=== PATIENT | male | born 2000 | race Caucasian/White ===

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

== ENCOUNTER 2020-01-29 17:42 | Emergency (ER) | payer MEDICAID, OTHER ==
--- NOTE | 2020-01-29 18:32 | EDM.PDOC ---
ED HPI GENERAL MEDICAL PROBLEM - General Chief Complaint: Respiratory Problem Stated Complaint: HARD TIME BREATHING Time Seen by Provider: 01/29/20 18:10 Source of Information: Reports: Patient, RN, RN Notes Reviewed History Limitations: Reports: No Limitations - History of Present Illness INITIAL COMMENTS - FREE TEXT/NARRATIVE: Presents to ER with complaint of waking up about 730 this morning feeling as though he was being choked, sore throat, and difficulty catching his breath. Patient states this resolved on its own, he did help his friend move today. Patient states he has been beginning to feel as though he is tight in the throat again, sore throat, states he has had a cough and some sinus congestion on and off. Admits to fever and chills. Denies any chest pains or shortness of breath, nausea, vomiting, diarrhea. Onset: Today, Sudden Bilateral Throat Pain Score (Numeric/FACES): 8 - Related Data Allergies Allergy/AdvReac Type Severity Reaction Status Date / Time amoxicillin Allergy Rash Verified 01/29/20 17:54 Home Meds: Home Meds . [No Known Home Meds] 12/04/19 [History] Past Medical History - Past Health History Medical/Surgical History: Denies Medical/Surgical History HEENT History: Reports: None Cardiovascular History: Reports: None Respiratory History: Reports: None Gastrointestinal History: Reports: None Genitourinary History: Reports: None Musculoskeletal History: Reports: Other (See Below) Other Musculoskeletal History: Lt wrist fx. Hip left problems Neurological History: Reports: None Psychiatric History: Reports: Anxiety, Depression, Other (See Below) Other Psychiatric History: issues with sleeping Endocrine/Metabolic History: Reports: None Hematologic History: Reports: None Immunologic History: Reports: None Oncologic (Cancer) History: Reports: None Dermatologic History: Reports: None - Infectious Disease History Infectious Disease History: Reports: Chicken Pox, Shingles - Past Surgical History Head Surgeries/Procedures: Reports: None Social & Family History - Family History Family Medical History: Noncontributory Respiratory: Reports: Asthma - Tobacco Use Smoking Status *Q: Never Smoker Second Hand Smoke Exposure: No - Caffeine Use Caffeine Use: Reports: Energy Drinks Caffeine Use Comment: occassional - Recreational Drug Use Recreational Drug Use: No ED ROS GENERAL - Review of Systems Review Of Systems: Comprehensive ROS is negative, except as noted in HPI. ED EXAM, GENERAL - Physical Exam Exam: See Below Exam Limited By: No Limitations General Appearance: Alert, WD/WN, No Apparent Distress, Anxious Eye Exam: Bilateral Eye: EOMI, Normal Inspection Ears: Normal External Exam, Normal Canal, Hearing Grossly Normal, Normal TMs Nose: Normal Inspection Throat/Mouth: Normal Lips, Normal Teeth, Normal Gums, Normal Voice, No Airway Compromise, Other (Oropharynx erythematous) Head: Atraumatic, Normocephalic Neck: Supple, Non-Tender, Full Range of Motion, Lymphadenopathy (L), Lymphadenopathy (R) Respiratory/Chest: No Respiratory Distress, Lungs Clear, Normal Breath Sounds, No Accessory Muscle Use, Chest Non-Tender Cardiovascular: Normal Peripheral Pulses, Regular Rate, Rhythm, No Edema, No Gallop, No JVD, No Murmur, No Rub GI/Abdominal: Normal Bowel Sounds, Soft, Non-Tender, No Organomegaly, No Distention, No Abnormal Bruit, No Mass, Pelvis Stable (Male) Exam: Deferred Rectal (Males) Exam: Deferred Back Exam: Normal Inspection, Full Range of Motion, NT Extremities: Normal Inspection, Normal Range of Motion, Non-Tender, Normal Capillary Refill, No Pedal Edema Neurological: Alert, Oriented, CN II-XII Intact, Normal Cognition, Normal Gait, Normal Reflexes, No Motor/Sensory Deficits Psychiatric: Normal Affect, Normal Mood, Anxious Skin Exam: Warm, Dry, Intact, Normal Color, No Rash Lymphatic: Adenopathy (Anterior Cervical +1-2 bilaterally) Course - Vital Signs Last Recorded V/S: Last Vital Signs Temp 98.6 F 01/29/20 17:55 Pulse 74 01/29/20 17:55 Resp 20 01/29/20 17:55 BP 144/82 H 01/29/20 17:55 Pulse Ox 99 01/29/20 17:55 - Orders/Labs/Meds Orders: Active Orders 24 hr Category Date Time Status CULTURE STREP A CONFIRMATION [] Stat Lab 01/29/20 18:10 Results STREP SCRN A RAPID W CULT CONF [] Stat Lab 01/29/20 18:10 Results Labs: Rapid Strep: NEGATIVE Meds: Medications Discontinued Medications Generic Name Dose Route Start Last Admin Trade Name Freq PRN Reason Stop Dose Admin Azithromycin 500 mg 01/29/20 18:38 Zithromax PO 01/29/20 18:39 ONETIME ONE Departure - Departure Time of Disposition: 18:39 Disposition: Home, Self-Care 01 Condition: Fair Clinical Impression: Pharyngitis Qualifiers: Pharyngitis/tonsillitis etiology: unspecified etiology Qualified Code(s): J02.9 - Acute pharyngitis, unspecified - Discharge Information *PRESCRIPTION DRUG MONITORING PROGRAM REVIEWED*: No *COPY OF PRESCRIPTION DRUG MONITORING REPORT IN PATIENT DAVID: No Instructions: Pharyngitis, [id number], Upper Respiratory Infection, Adult, [id number], Sore Throat, [id number] Forms: ED Department Discharge Additional Instructions: May gargle with warm salt water Alternate Tylenol and/or Ibuprofen as directed for pain/fever Drink plenty of fluids May use over the counter decongestant as directed for sinus drainage RX: Azithromycin Sepsis Event Note (ED) - Evaluation Sepsis Screening Result: No Definite Risk - Focused Exam Vital Signs: Vital Signs Temp Pulse Resp BP Pulse Ox 01/29/20 17:55 98.6 F 74 20 144/82 H 99 - My Orders Last 24 Hours: My Active Orders 01/29/20 18:10 CULTURE STREP A CONFIRMATION [RM] Stat STREP SCRN A RAPID W CULT CONF [] Stat - Assessment/Plan Last 24 Hours: My Active Orders 01/29/20 18:10 CULTURE STREP A CONFIRMATION [RM] Stat STREP SCRN A RAPID W CULT CONF [] Stat
[2020-01-29] MEDS ORDERED: Azithromycin 250 MG Tab PO ONE (18:38)
== END 2020-01-29 18:45 | disposition home or self-care (01) ==
LOC: DL.ED 17:42
DX: J02.9 Acute pharyngitis, unspecified (principal); Z88.1 Allergy status to other antibiotic agents
CPT/HCPCS: 87081; 87430; 99283; A9270

== ENCOUNTER 2020-04-23 12:05 | Emergency (ER) | payer MEDICAID ==
[2020-04-23] MEDS ORDERED: Sodium Chloride 0.9% 10 ML Syringe FLUSH PRN (12:25)
--- NOTE | 2020-04-23 12:42 | CT ---
PROCEDURE INFORMATION: Exam: CT Head Without Contrast Exam date and time: 04/23/2020 12:28 PM Age: 20 years old Clinical indication: Weakness, extremity; Left; Additional info: Stroke code left weakness TECHNIQUE: Imaging protocol: Computed tomography of the head without contrast. Radiation optimization: All CT scans at this facility use at least one of these dose optimization techniques: automated exposure control; mA and/or kV adjustment per patient size (includes targeted exams where dose is matched to clinical indication); or iterative reconstruction. Other technique: STROKE PROTOCOL was implemented. COMPARISON: No relevant prior studies available. FINDINGS: Brain: Normal. No hemorrhage. Unremarkable white matter. No mass effect. Ventricles: No ventriculomegaly. Bones/joints: Unremarkable. No acute fracture. Paranasal sinuses: Visualized sinuses are unremarkable. No fluid levels. Mastoid air cells: Visualized mastoid air cells are well aerated. Soft tissues: Unremarkable. IMPRESSION: No acute intracranial abnormality. ASSESSMENT: ASPECTS ([place] Stroke Program Early CT Score) is 10.
[2020-04-23 13:09] LABS: CHLORIDE,CL 104 mmol/L (98-107); SODIUM,NA 140 mmol/L (136-145)
--- NOTE | 2020-04-23 14:08 | EDM.PDOC ---
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 Patient has no history of hypertension hypercholesteremia early cardiac or early vascular disease in his family. He was simply getting out of the truck when suddenly he felt [id number] to his left arm and his left leg and it was very weak and he also had some pain along the left side of his chest. He then summoned the ambulance at that time. When EMS arrived they noted that he did have some weakness to his left arm and his left leg. Upon arrival the patient denies any headache visual disturbances or diplopia. Denies any confusion although he feels that it is difficult for him to find the words and it takes him much longer to speak and he is much slower than he typically would be. Denies any chest pain shortness of breath or difficulty breathing. No cough congestion. No fever no chills. No weakness dizziness lightheadedness. No syncope. No abdominal pain nausea or vomiting. No hematuria dysuria or urinary frequency. No diarrhea. No recent large levels of stress or emotional psychological stress. He complains of weakness to his left arm his left legs and [id number] to his left arm and leg. No COVID exposure no COVID symptoms. Left Chest Pain Score (Numeric/FACES): 7 - Related Data Allergies Allergy/AdvReac Type Severity Reaction Status Date / Time amoxicillin Allergy Rash Verified 04/23/20 12:06 Home Meds: Home Meds . [No Known Home Meds] 12/04/19 [History] Past Medical History - Past Health History Medical/Surgical History: Denies Medical/Surgical History HEENT History: Reports: None Cardiovascular History: Reports: None Respiratory History: Reports: None Gastrointestinal History: Reports: None Genitourinary History: Reports: None Musculoskeletal History: Reports: Other (See Below) Other Musculoskeletal History: Lt wrist fx. Hip left problems Neurological History: Reports: None Psychiatric History: Reports: Anxiety, Depression, Other (See Below) Other Psychiatric History: issues with sleeping Endocrine/Metabolic History: Reports: None Hematologic History: Reports: None Immunologic History: Reports: None Oncologic (Cancer) History: Reports: None Dermatologic History: Reports: None - Infectious Disease History Infectious Disease History: Reports: None - Past Surgical History Head Surgeries/Procedures: Reports: None Social & Family History - Family History Family Medical History: Noncontributory Respiratory: Reports: Asthma - Tobacco Use Smoking Status *Q: Never Smoker Second Hand Smoke Exposure: No - Caffeine Use Caffeine Use: Reports: Coffee Caffeine Use Comment: occassional - Recreational Drug Use Recreational Drug Use: No ED ROS GENERAL - Review of Systems Review Of Systems: Comprehensive ROS is negative, except as noted in HPI. ED EXAM, NEURO - Physical Exam Exam: See Below Exam Limited By: No Limitations General Appearance: Alert, WD/WN, No Apparent Distress Eye Exam: Bilateral Eye: EOMI, PERRL Ears: Normal External Exam, Normal Canal, Hearing Grossly Normal, Normal TMs Nose: Normal Inspection, Normal Mucosa Throat/Mouth: Normal Inspection, Normal Lips, Normal Teeth, Normal Gums, Normal Oropharynx, Normal Voice, No Airway Compromise Head Exam: Atraumatic, Normocephalic Neck: Normal Inspection, Supple, Non-Tender. No: Carotid Bruit, Lymphadenopathy (L), Lymphadenopathy (R) Respiratory/Chest: No Respiratory Distress, Lungs Clear, Normal Breath Sounds, No Accessory Muscle Use, Chest Non-Tender Cardiovascular: Normal Peripheral Pulses, Regular Rate, Rhythm, No Murmur GI/Abdominal: Normal Bowel Sounds, Soft, Non-Tender, No Distention, No Mass (Male) Exam: Deferred Rectal (Males) Exam: Deferred Neurological: Alert, Normal Mood/Affect, Normal Reflexes, Oriented x 3. No: No Motor/Sensory Deficits (The patient has pronator drift of the left arm as well as weakness of the left leg he can barely keep it off the bed for the leg and his arm just slowly dressed does not touch the bed but he gets very close. The rest of his NIH stroke scale is 0 his speech is clear and articulate. He has no sensation abnormalities. No visual field cuts. His speech is slow but it is clear and not dysarthric. NIH total of 2) Back Exam: Normal Inspection Extremities: Normal Inspection, Normal Range of Motion, Normal Capillary Refill Psychiatric: Normal Affect, Normal Mood Skin Exam: Warm, Dry, Intact, Normal Color, No Rash EKG INTERPRETATION EKG Date: 04/23/20 Time: 12:14 Rhythm: NSR Rate (Beats/Min): [address] [place]: Normal P-Wave: Present QRS: Normal ST-T: Normal QT: Normal Comparison: NA - No Prior EKG Course - Vital Signs Last Recorded V/S: Last Vital Signs Temp 99.9 F 04/23/20 12:06 Pulse 80 04/23/20 12:06 Resp 18 04/23/20 12:06 BP 137/77 04/23/20 12:06 Pulse Ox 100 04/23/20 12:06 - Orders/Labs/Meds Orders: Active Orders 24 hr Category Date Time Status Blood Glucose Check, Bedside [] ONETIME Care 04/23/20 12:58 Active EKG 12 Lead [EKG Documentation Completion] [] STAT Care 04/23/20 12:22 Active Peripheral IV Care [] . DIRECTED Care 04/23/20 12:26 Active Alteplase [Activase] Med 04/23/20 13:15 Active 78.8 mg IV .INFUSION Alteplase [Activase] Med 04/23/20 13:15 Active 8.8 mg IVPUSH .BOLUS Sodium Chloride 0.9% [Saline Flush] Med 04/23/20 12:25 Active 10 ml FLUSH ASDIRECTED PRN Peripheral IV Insertion Adult [OM.PC] Stat Oth 04/23/20 12:25 Ordered Medication Orders Alteplase, Recombinant (Activase) 78.8 mg IV .INFUSION NAHED Last Admin: 04/23/20 13:25 Dose: 78.8 mg Documented by: PALLAVI Cosigned by: ROMIE Alteplase, Recombinant (Activase) 8.8 mg IVPUSH .BOLUS NAHED Last Admin: 04/23/20 13:24 Dose: 8.8 mg Documented by: PALLAIV Cosigned by: ROMIE Sodium Chloride (Saline Flush) 10 ml FLUSH ASDIRECTED PRN PRN Reason: Keep Vein Open Last Admin: 04/23/20 13:25 Dose: 10 ml Documented by: PALLAVI Labs: Laboratory Tests 04/23/20 04/23/20 04/23/20 Range/Units 12:40 12:40 12:40 WBC 5.4 (5.0-10.0) 10^3/uL RBC 4.96 (4.6-6.2) 10^6/uL Hgb 14.7 (14.0-18.0) g/dL Hct 43.0 (40.0-54.0) % MCV 86.7 (80-100) fL MCH 29.6 (27.0-34.0) pg MCHC 34.2 (33.0-35.0) g/dL Plt Count 224 (150-450) 10^3/uL Neut % (Auto) 48.2 (42.2-75.2) % Lymph % (Auto) 42.8 (20.5-50.1) % [place]ance % (Auto) 6.8 (2-8) % Eos % (Auto) 1.5 (1.0-3.0) % Baso % (Auto) 0.7 (0.0-1.0) % PT 10.5 (9.0-12.0) SEC INR 1.1 (0.9-1.2) APTT 27.0 (22.0-34.0) SEC Sodium 140 (136-145) mmol/L Potassium 4.0 (3.5-5.1) mmol/L Chloride 104 (98-107) mmol/L Carbon Dioxide 25 (21-32) mmol/L Anion Gap 15.0 H (7-13) mEq/L BUN 19 H (7-18) mg/dL Creatinine 1.12 (0.70-1.30) mg/dL Est Cr Clr Drug Dosing 112.05 mL/min Estimated GFR (MDRD) > 60 BUN/Creatinine Ratio 17.0 (No establ ref range) Glucose 90 (74-99) mg/dL Lactic Acid (0.4-2.0) mmol/L Calcium 9.2 (8.5-10.1) mg/dL Total Bilirubin 0.4 (0.2-1.0) mg/dL AST 24 (15-37) U/L ALT 27 (16-63) U/L Alkaline Phosphatase 82 (46-116) U/L Troponin I < 0.017 (0.000-0.056) ng/mL C-Reactive Protein 0.2 (0.0-0.9) mg/dL Total Protein 7.9 (6.4-8.2) g/dL Albumin 4.3 (3.4-5.0) g/dL Globulin 3.6 Albumin/Globulin Ratio 1.2 Urine Opiates Screen (NEGATIVE) Ur Oxycodone Screen (NEGATIVE) Urine Methadone Screen (NEGATIVE) Ur Barbiturates Screen (NEGATIVE) U Tricyclic Antidepress (NEGATIVE) Ur Phencyclidine Scrn (NEGATIVE) Ur Amphetamine Screen (NEGATIVE) U Methamphetamines Scrn (NEGATIVE) Urine MDMA Screen (NEGATIVE) U Benzodiazepines Scrn (NEGATIVE) Urine Cocaine Screen (NEGATIVE) U Marijuana (THC) Screen (NEGATIVE) Ethyl Alcohol (0) mg/dL 04/23/20 04/23/20 04/23/20 Range/Units 12:40 12:40 13:05 WBC (5.0-10.0) 10^3/uL RBC (4.6-6.2) 10^6/uL Hgb (14.0-18.0) g/dL Hct (40.0-54.0) % MCV (80-100) fL MCH (27.0-34.0) pg MCHC (33.0-35.0) g/dL Plt Count (150-450) 10^3/uL Neut % (Auto) (42.2-75.2) % Lymph % (Auto) (20.5-50.1) % [place]ance % (Auto) (2-8) % Eos % (Auto) (1.0-3.0) % Baso % (Auto) (0.0-1.0) % PT (9.0-12.0) SEC INR (0.9-1.2) APTT (22.0-34.0) SEC Sodium (136-145) mmol/L Potassium (3.5-5.1) mmol/L Chloride (98-107) mmol/L Carbon Dioxide (21-32) mmol/L Anion Gap (7-13) mEq/L BUN (7-18) mg/dL Creatinine (0.70-1.30) mg/dL Est Cr Clr Drug Dosing mL/min Estimated GFR (MDRD) BUN/Creatinine Ratio (No establ ref range) Glucose (74-99) mg/dL Lactic Acid 1.3 (0.4-2.0) mmol/L Calcium (8.5-10.1) mg/dL Total Bilirubin (0.2-1.0) mg/dL AST (15-37) U/L ALT (16-63) U/L Alkaline Phosphatase (46-116) U/L Troponin I (0.000-0.056) ng/mL C-Reactive Protein (0.0-0.9) mg/dL Total Protein (6.4-8.2) g/dL Albumin (3.4-5.0) g/dL Globulin Albumin/Globulin Ratio Urine Opiates Screen Negative (NEGATIVE) Ur Oxycodone Screen Negative (NEGATIVE) Urine Methadone Screen Negative (NEGATIVE) Ur Barbiturates Screen Negative (NEGATIVE) U Tricyclic Antidepress Negative (NEGATIVE) Ur Phencyclidine Scrn Negative (NEGATIVE) Ur Amphetamine Screen Negative (NEGATIVE) U Methamphetamines Scrn Negative (NEGATIVE) Urine MDMA Screen Negative (NEGATIVE) U Benzodiazepines Scrn Negative (NEGATIVE) Urine Cocaine Screen Negative (NEGATIVE) U Marijuana (THC) Screen Negative (NEGATIVE) Ethyl Alcohol < 3 (0) mg/dL Meds: Medications Generic Name Dose Route Start Last Admin Trade Name Freq PRN Reason Stop Dose Admin Alteplase, Recombinant 78.8 mg 04/23/20 13:15 04/23/20 13:25 Activase IV 78.8 mg .INFUSION NAHED Administration Alteplase, Recombinant 8.8 mg 04/23/20 13:15 04/23/20 13:24 Activase IVPUSH 8.8 mg .BOLUS NAHED Administration Sodium Chloride 10 ml 04/23/20 12:25 04/23/20 13:25 Saline Flush FLUSH 10 ml ASDIRECTED PRN Administration Keep Vein Open Discontinued Medications Generic Name Dose Route Start Last Admin Trade Name Freq PRN Reason Stop Dose Admin Alteplase, Recombinant 9 mg 04/23/20 13:01 Activase IV 04/23/20 13:02 ONETIME ONE Alteplase, Recombinant 78 mg 04/23/20 13:15 Activase IV .INFUSION NAHED - Re-Assessments/Exams Free Text/Narrative Re-Assessment/Exam: 04/23/20 Immediately upon exam a stroke code was activated. CT scan no acute findings. Blood glucose appropriate. Labs drawn. EKG NSR without ST elevation or other changes. I urgently called and spoke with Dr. Kahn the neurologist tonal regulator at [facility] the Stroke [facility]. HPI ER COURSE findings and concerns were relayed to him verbally over the phone. Due to the weakness of the leg and arm and this could be a life altering debilitating stroke his recommendation would be to administer TPA at this time. I reviewed by concern of the acute neurological changes of his left arm and his left leg concerning for an acute stroke. Best course of action at this time as guided by the neurologist would be to offer TPA. The risk and benefits of this medication to include improvement of his symptoms no improvement and risk of intracranial bleeding and were explained to him. His questions were answered. After the contraindications were verified as none the patient verbally consented to the administration of the TPA for the concerns of an acute CVA affecting his left side. Alteplase bolus and infusion per protocol He was flown by [facility] fixed wing to [place] for further care management and workup at the stroke center in [place]. Departure - Departure Time of Disposition: 12:50 Disposition: DC/Tfer to Acute Hospital 02 Clinical Impression: CVA (cerebral vascular accident) Qualifiers: CVA mechanism: unspecified Qualified Code(s): I63.9 - Cerebral infarction, unspecified - Discharge Information Referrals: PCP,None [Primary Care Provider] - Critical Care Note - Critical Care Note Total Time (mins): 35 (35 minutes in critical care time for this stroke code activation reviewing the CT myself consulting with the neurologist in [place] and planning for the transfer and bedside discussion with the patient about risk and benefits of this medication.) Sepsis Event Note (ED) - Evaluation Sepsis Screening Result: No Definite Risk - Focused Exam Vital Signs: Vital Signs Temp Pulse Resp BP Pulse Ox 04/23/20 12:06 99.9 F 80 18 137/77 100 - My Orders Last 24 Hours: My Active Orders 04/23/20 12:22 EKG 12 Lead [EKG Documentation Completion] [RC] STAT 04/23/20 12:25 Sodium Chloride 0.9% [Saline Flush] 10 ml FLUSH ASDIRECTED PRN Peripheral IV Insertion Adult [OM.PC] Stat 04/23/20 12:26 Peripheral IV Care [RC] . DIRECTED 04/23/20 12:58 Blood Glucose Check, Bedside [RC] ONETIME 04/23/20 13:15 Alteplase [Activase] 78.8 mg IV .INFUSION Alteplase [Activase] 8.8 mg IVPUSH .BOLUS - Assessment/Plan Last 24 Hours: My Active Orders 04/23/20 12:22 EKG 12 Lead [EKG Documentation Completion] [] STAT 04/23/20 12:25 Sodium Chloride 0.9% [Saline Flush] 10 ml FLUSH ASDIRECTED PRN Peripheral IV Insertion Adult [OM.PC] Stat 04/23/20 12:26 Peripheral IV Care [] . DIRECTED 04/23/20 12:58 Blood Glucose Check, Bedside [] ONETIME 04/23/20 13:15 Alteplase [Activase] 78.8 mg IV .INFUSION Alteplase [Activase] 8.8 mg IVPUSH .BOLUS
== END 2020-04-23 14:40 ==
LOC: DL.ED 12:05
DX: I63.9 Cerebral infarction, unspecified (principal); Z88.0 Allergy status to penicillin
CPT/HCPCS: 36415; 37195; 70450; 80053; 80305; 80307; 82962; 83605; 84484; 85025; 85610; 85730; 86140; 93005; 99285; J2997; 99281

== ENCOUNTER 2020-04-30 10:55 | Emergency (ER) | payer MEDICAID ==
--- NOTE | 2020-04-30 11:15 | CT ---
PROCEDURE INFORMATION: Exam: CT Head Without Contrast Exam date and time: 04/30/2020 11:05 AM Age: 20 years old Clinical indication: Other: Possible stroke TECHNIQUE: Imaging protocol: Computed tomography of the head without contrast. Radiation optimization: All CT scans at this facility use at least one of these dose optimization techniques: automated exposure control; mA and/or kV adjustment per patient size (includes targeted exams where dose is matched to clinical indication); or iterative reconstruction. Other technique: STROKE PROTOCOL was implemented. COMPARISON: CT Head wo Cont 04/23/2020 12:28 PM FINDINGS: Brain: Normal. No hemorrhage. Unremarkable white matter. No mass effect. Ventricles: No ventriculomegaly. Bones/joints: Unremarkable. No acute fracture. Paranasal sinuses: Visualized sinuses are unremarkable. No fluid levels. Mastoid air cells: Visualized mastoid air cells are well aerated. Soft tissues: Unremarkable. IMPRESSION: No acute intracranial abnormality. ASSESSMENT: ASPECTS ([facility] Stroke Program Early CT Score) 10
[2020-04-30 11:39] LABS: ANION GAP 17.6 mEq/L (7-13); CHLORIDE,CL 103 mmol/L (98-107); SODIUM,NA 140 mmol/L (136-145)
--- NOTE | 2020-04-30 12:15 | MR ---
PROCEDURE INFORMATION: Exam: MR Head Without Contrast Exam date and time: 04/30/2020 11:34 AM Age: 20 years old Clinical indication: Weakness, extremity; Left; Additional info: Left sided weakness TECHNIQUE: Imaging protocol: MR of the head without contrast. COMPARISON: CT Head wo Cont 04/30/2020 11:05 AM FINDINGS: Brain: No acute infarct identified on the diffusion-weighted imaging. No evidence of brain parenchymal edema or intracranial mass effect. No significant white matter disease. Ventricles: Normal. No ventriculomegaly. Bones/joints: Unremarkable. Sinuses: Trace ethmoid sinus mucosal thickening. Mastoid air cells: Normal as visualized. No mastoid effusion. Orbits: Unremarkable. Soft tissues: Unremarkable. Nasopharynx: Chronic apex right deviation and spurring of the nasal septum. Lymph nodes: The upper cervical lymph nodes are prominent in number, probably normal or reactive lymph nodes in this young patient. IMPRESSION: No evidence of acute infarct.
--- NOTE | 2020-04-30 12:59 | EDM.PDOC ---
ED HPI GENERAL MEDICAL PROBLEM - General Chief Complaint: Neuro Symptoms/Deficits Stated Complaint: THINKS POSSIBLE STROKE [id number] Time Seen by Provider: 04/30/20 10:55 Source of Information: Reports: Patient, Family, RN, RN Notes Reviewed History Limitations: Reports: No Limitations - History of Present Illness INITIAL COMMENTS - FREE TEXT/NARRATIVE: Patient presents to ER with complaint of left-sided arm weakness, numbness and tingling. Patient states his speech is a little slow, states that his responses are slower than normal. Patient was seen in the ER last week for similar symptoms, received TPA, and was flown to [place]. When discussing the patient's case with , [facility] [place], he states the patient was ruled out for stroke, was to follow-up with primary care provider this week. He states it was felt there was more depression and anxiety causing the patient's symptoms. Patient denies anxiety or depression recently. States approximately 3 weeks ago he did have quite a bit of anxiety. Denies any visual disturbances weakness of the lower limbs. Dr. Maria recommends an MRI. If MRI negative patient can be discharged home for follow-up with primary care. If any changes, patient can be transferred to [place]. Onset: Today, Sudden Middle Chest Pain Score (Numeric/FACES): 6 - Related Data Allergies Allergy/AdvReac Type Severity Reaction Status Date / Time amoxicillin Allergy Rash Verified 04/23/20 12:06 Home Meds: Home Meds . [No Known Home Meds] 12/04/19 [History] Past Medical History - Past Health History Medical/Surgical History: Denies Medical/Surgical History HEENT History: Reports: None Cardiovascular History: Reports: None Respiratory History: Reports: None Gastrointestinal History: Reports: None Genitourinary History: Reports: None Musculoskeletal History: Reports: Other (See Below) Other Musculoskeletal History: Lt wrist fx. Hip left problems Neurological History: Reports: None Psychiatric History: Reports: Anxiety, Depression, Other (See Below) Other Psychiatric History: issues with sleeping Endocrine/Metabolic History: Reports: None Hematologic History: Reports: None Immunologic History: Reports: None Oncologic (Cancer) History: Reports: None Dermatologic History: Reports: None - Infectious Disease History Infectious Disease History: Reports: None - Past Surgical History Head Surgeries/Procedures: Reports: None Social & Family History - Family History Family Medical History: Noncontributory Respiratory: Reports: Asthma - Caffeine Use Caffeine Use: Reports: Coffee Caffeine Use Comment: occassional ED ROS GENERAL - Review of Systems Review Of Systems: Comprehensive ROS is negative, except as noted in HPI. ED EXAM, NEURO - Physical Exam Exam: See Below Exam Limited By: No Limitations General Appearance: Alert, WD/WN, Anxious, Mild Distress Eye Exam: Bilateral Eye: EOMI, Normal Inspection Ears: Normal External Exam, Hearing Grossly Normal Nose: Normal Inspection Throat/Mouth: Normal Inspection, Normal Voice, No Airway Compromise Head Exam: Atraumatic, Normocephalic Neck: Normal Inspection, Supple, Non-Tender, Full Range of Motion Respiratory/Chest: No Respiratory Distress, Lungs Clear, Normal Breath Sounds, No Accessory Muscle Use, Chest Non-Tender Cardiovascular: Normal Peripheral Pulses, Regular Rate, Rhythm, No Edema, No Gallop, No JVD, No Murmur, No Rub GI/Abdominal: Normal Bowel Sounds, Soft, Non-Tender, No Organomegaly, No Distention, No Abnormal Bruit, No Mass, Pelvis Stable (Male) Exam: Deferred Rectal (Males) Exam: Deferred Neurological: Alert, Normal Plantar Flexion, Normal Gait, Normal Reflexes, Oriented x 3, Abnormal Sensation (Numbness/tingling to left arm), Other (weakness left arm/hand) Back Exam: Normal Inspection Extremities: Normal Inspection, Non-Tender, No Pedal Edema Psychiatric: Normal Affect, Normal Mood, Anxious Skin Exam: Warm, Dry, Intact, Normal Color, No Rash Course - Vital Signs Last Recorded V/S: Last Vital Signs Temp 98.4 F 04/30/20 11:25 Pulse 108 H 04/30/20 11:25 Resp 16 04/30/20 11:25 BP 134/78 04/30/20 11:25 Pulse Ox 98 04/30/20 11:25 - Orders/Labs/Meds Labs: Laboratory Tests 04/30/20 04/30/20 04/30/20 Range/Units 10:58 11:15 11:15 WBC 6.5 (5.0-10.0) 10^3/uL RBC 4.92 (4.6-6.2) 10^6/uL Hgb 14.5 (14.0-18.0) g/dL Hct 42.3 (40.0-54.0) % MCV 86.0 (80-100) fL MCH 29.5 (27.0-34.0) pg MCHC 34.3 (33.0-35.0) g/dL Plt Count 234 (150-450) 10^3/uL Neut % (Auto) 42.9 (42.2-75.2) % Lymph % (Auto) 45.1 (20.5-50.1) % [place] % (Auto) 9.5 H (2-8) % Eos % (Auto) 1.7 (1.0-3.0) % Baso % (Auto) 0.8 (0.0-1.0) % PT (9.0-12.0) SEC INR (0.9-1.2) Sodium 140 (136-145) mmol/L Potassium 3.6 (3.5-5.1) mmol/L Chloride 103 (98-107) mmol/L Carbon Dioxide 23 (21-32) mmol/L Anion Gap 17.6 H (7-13) mEq/L BUN 15 (7-18) mg/dL Creatinine 1.12 (0.70-1.30) mg/dL Est Cr Clr Drug Dosing TNP Estimated GFR (MDRD) > 60 BUN/Creatinine Ratio 13.4 (No establ ref range) Glucose 88 (74-99) mg/dL POC Glucose 81 (70-105) mg/dl Calcium 9.4 (8.5-10.1) mg/dL Total Bilirubin 0.5 (0.2-1.0) mg/dL AST 23 (15-37) U/L ALT 29 (16-63) U/L Alkaline Phosphatase 77 (46-116) U/L Total Protein 7.8 (6.4-8.2) g/dL Albumin 4.3 (3.4-5.0) g/dL Globulin 3.5 Albumin/Globulin Ratio 1.2 Ethyl Alcohol < 3 (0) mg/dL 04/30/20 Range/Units 11:15 WBC (5.0-10.0) 10^3/uL RBC (4.6-6.2) 10^6/uL Hgb (14.0-18.0) g/dL Hct (40.0-54.0) % MCV (80-100) fL MCH (27.0-34.0) pg MCHC (33.0-35.0) g/dL Plt Count (150-450) 10^3/uL Neut % (Auto) (42.2-75.2) % Lymph % (Auto) (20.5-50.1) % [place] % (Auto) (2-8) % Eos % (Auto) (1.0-3.0) % Baso % (Auto) (0.0-1.0) % PT 10.6 (9.0-12.0) SEC INR 1.1 (0.9-1.2) Sodium (136-145) mmol/L Potassium (3.5-5.1) mmol/L Chloride (98-107) mmol/L Carbon Dioxide (21-32) mmol/L Anion Gap (7-13) mEq/L BUN (7-18) mg/dL Creatinine (0.70-1.30) mg/dL Est Cr Clr Drug Dosing Estimated GFR (MDRD) BUN/Creatinine Ratio (No establ ref range) Glucose (74-99) mg/dL POC Glucose (70-105) mg/dl Calcium (8.5-10.1) mg/dL Total Bilirubin (0.2-1.0) mg/dL AST (15-37) U/L ALT (16-63) U/L Alkaline Phosphatase (46-116) U/L Total Protein (6.4-8.2) g/dL Albumin (3.4-5.0) g/dL Globulin Albumin/Globulin Ratio Ethyl Alcohol (0) mg/dL Departure - Departure Time of Disposition: 13:57 Disposition: Home, Self-Care 01 Condition: Fair Clinical Impression: Weakness of hand, Limb weakness - Discharge Information *PRESCRIPTION DRUG MONITORING PROGRAM REVIEWED*: No *COPY OF PRESCRIPTION DRUG MONITORING REPORT IN PATIENT DAVID: No Instructions: Weakness, [id number] Referrals: Gildardo Leahy NP [Primary Care Provider] - Forms: ED Department Discharge Additional Instructions: Return to the ER with any worsening of problems Follow-up with your primary care provider this week Sepsis Event Note (ED) - Evaluation Sepsis Screening Result: No Definite Risk
== END 2020-04-30 13:30 | disposition home or self-care (01) ==
LOC: DL.ED 10:55
DX: R53.1 Weakness (principal); Z88.0 Allergy status to penicillin
CPT/HCPCS: 36415; 70450; 70551; 80053; 80307; 82962; 85025; 85610; 99283; 99285-25

== ENCOUNTER 2020-06-16 15:19 | Emergency (ER) | payer SELFPAY ==
--- NOTE | 2020-06-16 17:21 | EDM.PDOC ---
Scribed by Tala Hallman 06/16/20 1721 for Uvaldo Sandoval MD ED HPI GENERAL MEDICAL PROBLEM - General Chief Complaint: General Stated Complaint: 96.3, HEADACHE, BREATHING, ACHES ALL OVER COVID Time Seen by Provider: 06/16/20 16:25 Source of Information: Reports: Patient, RN, RN Notes Reviewed History Limitations: Reports: No Limitations - History of Present Illness INITIAL COMMENTS - FREE TEXT/NARRATIVE: Patient presents to ED by POV stating that he gave someone a ride a week and a half ago and now they have COVID. He was wearing a mask but the person was not. Now has had fatigue and a headache for the last few days. He has felt feverish but has taken temperature and it has not been high. Denies any abdominal pain, nausea, vomiting or diarrhea. He does have fatigue, headache slight sore throat and some shortness of breath. Onset: Gradual Duration: Constant Location: Reports: Generalized Quality: Reports: Ache Severity: Moderate Improves with: Reports: None Worsens with: Reports: None Associated Symptoms: Reports: No Other Symptoms - Related Data Allergies Allergy/AdvReac Type Severity Reaction Status Date / Time amoxicillin Allergy Rash Verified 06/16/20 16:04 Home Meds: Home Meds Aspirin 81 mg PO DAILY 06/16/20 [History] atorvaSTATin [Lipitor] 40 mg PO DAILY 06/16/20 [History] buPROPion [buPROPion XL] 150 mg PO DAILY 06/16/20 [History] Past Medical History - Past Health History Medical/Surgical History: Denies Medical/Surgical History HEENT History: Reports: None Cardiovascular History: Reports: None Respiratory History: Reports: None Gastrointestinal History: Reports: None Genitourinary History: Reports: None Musculoskeletal History: Reports: Other (See Below) Other Musculoskeletal History: Lt wrist fx. Hip left problems Neurological History: Reports: None Psychiatric History: Reports: Anxiety, Depression, Other (See Below) Other Psychiatric History: issues with sleeping Endocrine/Metabolic History: Reports: None Hematologic History: Reports: None Immunologic History: Reports: None Oncologic (Cancer) History: Reports: None Dermatologic History: Reports: None - Infectious Disease History Infectious Disease History: Reports: None - Past Surgical History Head Surgeries/Procedures: Reports: None Social & Family History - Family History Family Medical History: Noncontributory Respiratory: Reports: Asthma - Tobacco Use Tobacco Use Status *Q: Never Tobacco User - Caffeine Use Caffeine Use: Reports: Coffee Caffeine Use Comment: occassional - Recreational Drug Use Recreational Drug Use: No ED ROS GENERAL - Review of Systems Review Of Systems: Comprehensive ROS is negative, except as noted in HPI. ED EXAM, GENERAL - Physical Exam Exam: See Below Exam Limited By: No Limitations General Appearance: Alert, WD/WN, No Apparent Distress Eye Exam: Bilateral Eye: Normal Inspection Ears: Normal External Exam, Normal Canal, Hearing Grossly Normal, Normal TMs Nose: Normal Inspection, Normal Mucosa, No Blood Throat/Mouth: Normal Inspection, Normal Lips, Normal Oropharynx, Normal Voice, No Airway Compromise Head: Atraumatic, Normocephalic Neck: Normal Inspection, Supple, Non-Tender, Full Range of Motion Respiratory/Chest: No Respiratory Distress, Lungs Clear, No Accessory Muscle Use, Chest Non-Tender, Decreased Breath Sounds. No: Crackles, Rales, Rhonchi, Wheezing, Stridor Cardiovascular: Regular Rate, Rhythm GI/Abdominal: Normal Bowel Sounds, Soft, Non-Tender, No Organomegaly, No Distention, No Abnormal Bruit, No Mass Extremities: Normal Inspection Neurological: Alert, Oriented, CN II-XII Intact, Normal Cognition, Normal Gait, No Motor/Sensory Deficits Psychiatric: Anxious Skin Exam: Warm, Dry, Intact, Normal Color, No Rash Course - Vital Signs Last Recorded V/S: Last Vital Signs Temp 99.3 F 06/16/20 15:38 Pulse 75 06/16/20 15:38 Resp 18 06/16/20 15:38 BP 149/80 H 06/16/20 15:38 Pulse Ox 100 06/16/20 15:38 - Orders/Labs/Meds Orders: Active Orders 24 hr Category Date Time Status Chest 1V Frontal [CR] Stat Exams 06/16/20 16:33 Taken CORONAVIRUS COVID-19 PCR PHL Stat Lab 06/16/20 16:29 Received - Radiology Interpretation Free Text/Narrative:: CXR: no acute process, see Rad. report. Departure - Departure Time of Disposition: 17:17 Disposition: Home, Self-Care 01 Condition: Good Clinical Impression: Exposure to COVID-19 virus, Cough with exposure to COVID-19 virus - Discharge Information *PRESCRIPTION DRUG MONITORING PROGRAM REVIEWED*: Not Applicable *COPY OF PRESCRIPTION DRUG MONITORING REPORT IN PATIENT DAVID: Not Applicable Instructions: Prevent the Spread of COVID-19 if You Are Sick - CDC, COVID-19 Forms: ED Department Discharge Additional Instructions: Rest, eat healthy. Use Tylenol and Ibuprofen as needed for headache, pains, or fever. Follow directions on label for dosing and precautions. Quarantine at home until your COVID test results are available, and for 14 days from the onset of illness if your COVID test is positive. Sepsis Event Note (ED) - Evaluation Sepsis Screening Result: No Definite Risk - Focused Exam Vital Signs: Vital Signs Temp Pulse Resp BP Pulse Ox 06/16/20 15:38 99.3 F 75 18 149/80 H 100 - My Orders Last 24 Hours: My Active Orders 06/16/20 16:29 CORONAVIRUS COVID-19 PCR PHL Stat 06/16/20 16:33 Chest 1V Frontal [CR] Stat - Assessment/Plan Last 24 Hours: My Active Orders 06/16/20 16:29 CORONAVIRUS COVID-19 PCR PHL Stat 06/16/20 16:33 Chest 1V Frontal [CR] Stat I have read and agree with the documentation that has been completed regarding this visit. By signing this record, I attest that the documentation was completed in my physical presence and is an accurate record of the encounter.
--- NOTE | 2020-06-16 17:22 | CR ---
PROCEDURE INFORMATION: Exam: XR Chest, 1 View Exam date and time: 06/16/2020 4:33 PM Age: 20 years old Clinical indication: Shortness of breath; Additional info: Suspected covid, short of breath TECHNIQUE: Imaging protocol: XR of the chest Views: 1 view. COMPARISON: CR Chest 1V Frontal 10/02/2019 1:11 AM FINDINGS: Lungs: Unremarkable. No consolidation. Pleural space: Unremarkable. No pleural effusion. No pneumothorax. Heart/Mediastinum: Unremarkable. No cardiomegaly. Bones/joints: Unremarkable. IMPRESSION: No acute findings.
== END 2020-06-16 17:39 | disposition home or self-care (01) ==
LOC: DL.ED 15:19
DX: R05 Cough (principal); Z20.828 Contact with and (suspected) exposure to other viral communicable diseases; F41.9 Anxiety disorder, unspecified; F32.9 Major depressive disorder, single episode, unspecified; Z88.1 Allergy status to other antibiotic agents; Z79.82 Long term (current) use of aspirin; Z79.899 Other long term (current) drug therapy
CPT/HCPCS: 71045; 99282; 99285-25; U0002

== ENCOUNTER 2020-06-25 14:33 | Emergency (ER) | payer SELFPAY ==
--- NOTE | 2020-06-25 16:05 | EDM.PDOC ---
ED HPI GENERAL MEDICAL PROBLEM - General Chief Complaint: General Stated Complaint: COVID SYMPTOMS Time Seen by Provider: 06/25/20 15:30 Source of Information: Reports: Patient History Limitations: Reports: No Limitations - History of Present Illness INITIAL COMMENTS - FREE TEXT/NARRATIVE: This 20 yo male patient reports to the ED due to shortness of breath for 2 weeks, intermittent headaches, fevers (up to 102 while at home), generalized fatigue and chest congestion. The patient reports he may have been exposed to COVID 2 weeks ago and has not been feeling well since that time. The patient was tested for COVID on 06/15/20 (testing result was negative). The patient has not been seen in the clinic for his current symptoms. 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, NSAIDS - Related Data Allergies Allergy/AdvReac Type Severity Reaction Status Date / Time amoxicillin Allergy Rash Verified 06/25/20 15:05 Home Meds: Home Meds Aspirin 81 mg PO DAILY 06/16/20 [History] atorvaSTATin [Lipitor] 40 mg PO DAILY 06/16/20 [History] buPROPion [buPROPion XL] 150 mg PO DAILY 06/16/20 [History] Past Medical History - Past Health History Medical/Surgical History: Denies Medical/Surgical History HEENT History: Reports: None Cardiovascular History: Reports: High Cholesterol Respiratory History: Reports: None Gastrointestinal History: Reports: None Genitourinary History: Reports: None Musculoskeletal History: Reports: Other (See Below) Other Musculoskeletal History: Lt wrist fx. Hip left problems Neurological History: Reports: None Other Neuro History: CVA vs TIA vs ? Psychiatric History: Reports: Anxiety, Depression, Other (See Below) Other Psychiatric History: issues with sleeping Endocrine/Metabolic History: Reports: None Hematologic History: Reports: None Immunologic History: Reports: None Oncologic (Cancer) History: Reports: None Dermatologic History: Reports: None - Infectious Disease History Infectious Disease History: Reports: None - Past Surgical History Head Surgeries/Procedures: Reports: None Social & Family History - Family History Family Medical History: No Pertinent Family History Respiratory: Reports: Asthma - Tobacco Use Tobacco Use Status *Q: Never Tobacco User Second Hand Smoke Exposure: No - Caffeine Use Caffeine Use: Reports: None Caffeine Use Comment: occassional - Recreational Drug Use Recreational Drug Use: No ED ROS GENERAL - Review of Systems Review Of Systems: Comprehensive ROS is negative, except as noted in HPI. ED EXAM, GENERAL - Physical Exam Exam: See Below Exam Limited By: No Limitations General Appearance: Alert, WD/WN, Anxious, Mild Distress Eye Exam: Bilateral Eye: EOMI, Normal Inspection, PERRL Ears: Normal External Exam, Normal Canal, Hearing Grossly Normal, Normal TMs Nose: Normal Inspection, Normal Mucosa, No Blood Throat/Mouth: Normal Inspection, Normal Lips, Normal Teeth, Normal Gums, Normal Oropharynx, Normal Voice, No Airway Compromise Head: Atraumatic, Normocephalic, Facial Tenderness Neck: Normal Inspection, Supple, Non-Tender, Full Range of Motion Respiratory/Chest: No Respiratory Distress, Lungs Clear, Normal Breath Sounds, No Accessory Muscle Use, Chest Non-Tender Cardiovascular: Normal Peripheral Pulses, Regular Rate, Rhythm, No Edema, No Gallop, No JVD, No Murmur, No Rub GI/Abdominal: Normal Bowel Sounds, Soft, Non-Tender, No Organomegaly, No Distention, No Abnormal Bruit, No Mass (Male) Exam: Deferred Rectal (Males) Exam: Deferred Back Exam: Normal Inspection, Full Range of Motion, NT Extremities: Normal Inspection, Normal Range of Motion, Non-Tender, Normal Capillary Refill, No Pedal Edema Neurological: Alert, Oriented, CN II-XII Intact, Normal Cognition, Normal Gait, Normal Reflexes, No Motor/Sensory Deficits Psychiatric: Normal Affect, Normal Mood Skin Exam: Warm, Dry, Intact, Normal Color, No Rash Lymphatic: No Adenopathy Course - Vital Signs Last Recorded V/S: Last Vital Signs Temp 36.9 C 06/25/20 15:00 Pulse 74 06/25/20 15:00 Resp 18 06/25/20 15:00 BP 142/81 H 06/25/20 15:00 Pulse Ox 100 06/25/20 15:00 - Orders/Labs/Meds Orders: Active Orders 24 hr Category Date Time Status CORONAVIRUS COVID-19 PCR PHL Urgent Lab 06/25/20 16:00 Received CULTURE BLOOD [BC] Stat Lab 11/17/20 16:04 Received Isolation [COMM] Routine Ot 06/25/20 15:13 Active Labs: Laboratory Tests 06/25/20 06/25/20 06/25/20 Range/Units 16:04 16:04 16:04 WBC 6.2 (5.0-10.0) 10^3/uL RBC 5.12 (4.6-6.2) 10^6/uL Hgb 15.2 (14.0-18.0) g/dL Hct 44.7 (40.0-54.0) % MCV 87.3 (80-100) fL MCH 29.7 (27.0-34.0) pg MCHC 34.0 (33.0-35.0) g/dL Plt Count 191 (150-450) 10^3/uL Neut % (Auto) 44.4 (42.2-75.2) % Lymph % (Auto) 42.6 (20.5-50.1) % [place] % (Auto) 10.5 H (2-8) % Eos % (Auto) 1.9 (1.0-3.0) % Baso % (Auto) 0.6 (0.0-1.0) % Sodium 141 (136-145) mmol/L Potassium 4.3 (3.5-5.1) mmol/L Chloride 104 (98-107) mmol/L Carbon Dioxide 27 (21-32) mmol/L Anion Gap 14.3 H (7-13) mEq/L BUN 15 (7-18) mg/dL Creatinine 1.07 (0.70-1.30) mg/dL Est Cr Clr Drug Dosing TNP Estimated GFR (MDRD) > 60 BUN/Creatinine Ratio 14.0 (No establ ref range) Glucose 92 (74-99) mg/dL Lactic Acid 0.8 (0.4-2.0) mmol/L Calcium 9.0 (8.5-10.1) mg/dL Total Bilirubin 0.4 (0.2-1.0) mg/dL AST 37 (15-37) U/L ALT 66 H (16-63) U/L Alkaline Phosphatase 80 (46-116) U/L Total Protein 7.5 (6.4-8.2) g/dL Albumin 3.8 (3.4-5.0) g/dL Globulin 3.7 Albumin/Globulin Ratio 1.0 Departure - Departure Time of Disposition: 16:39 Disposition: Home, Self-Care 01 Condition: Fair Clinical Impression: Viral URI - Discharge Information *PRESCRIPTION DRUG MONITORING PROGRAM REVIEWED*: Not Applicable *COPY OF PRESCRIPTION DRUG MONITORING REPORT IN PATIENT DAVID: Not Applicable Instructions: Viral Respiratory Infection, [id number] Forms: ED Department Discharge Care Plan Goals: The patient was advise of the examination, lab and x-ray results during the visit. The patient was advised that there was a test for COVID that was sent off the [facility] for analysis. These results are normally received in 3-5 days. The patient was encouraged to take over the counter medications as directed for temporary symptom relief. If the patient has any additional symptoms or concerns, the patient should either return to the emergency department or visit his primary care facility. Sepsis Event Note (ED) - Evaluation Sepsis Screening Result: No Definite Risk - Focused Exam Vital Signs: Vital Signs Temp Pulse Resp BP Pulse Ox 06/25/20 15:00 36.9 C 74 18 142/81 H 100 - My Orders Last 24 Hours: My Active Orders 06/25/20 15:13 Isolation [COMM] Routine 06/25/20 16:00 CORONAVIRUS COVID-19 PCR PHL Urgent 06/25/20 16:04 CULTURE BLOOD [BC] Stat - Assessment/Plan Last 24 Hours: My Active Orders 06/25/20 15:13 Isolation [COMM] Routine 06/25/20 16:00 CORONAVIRUS COVID-19 PCR PHL Urgent 06/25/20 16:04 CULTURE BLOOD [BC] Stat
--- NOTE | 2020-06-25 16:18 | CR ---
PROCEDURE INFORMATION: Exam: XR Chest, 2 Views Exam date and time: 06/25/2020 4:01 PM Age: 20 years old Clinical indication: Other: Short of breath TECHNIQUE: Imaging protocol: XR of the chest Views: 2 views. COMPARISON: CR Chest 1V Frontal 06/16/2020 4:33 PM FINDINGS: Lungs: Unremarkable. No consolidation. Pleural space: Unremarkable. No pleural effusion. No pneumothorax. Heart/Mediastinum: Unremarkable. No cardiomegaly. Bones/joints: Unremarkable. IMPRESSION: No acute findings.
[2020-06-25 16:30] LABS: ANION GAP 14.3 mEq/L (7-13); CHLORIDE,CL 104 mmol/L (98-107); SODIUM,NA 141 mmol/L (136-145)
== END 2020-06-25 16:45 | disposition home or self-care (01) ==
LOC: DL.ED 14:33
DX: J06.9 Acute upper respiratory infection, unspecified (principal); E78.00 Pure hypercholesterolemia, unspecified; F41.9 Anxiety disorder, unspecified; F32.9 Major depressive disorder, single episode, unspecified; Z88.1 Allergy status to other antibiotic agents; Z79.82 Long term (current) use of aspirin; Z79.899 Other long term (current) drug therapy
CPT/HCPCS: 36415; 71046; 80053; 83605; 85025; 87040; 87804; 99285-25; U0002

== ENCOUNTER 2021-03-31 19:57 | Emergency (ER) | payer MEDICAID | END 2021-03-31 20:56 | disposition left against medical advice (07) | LOC: DL.ED 19:57 | DX: R25.1 Tremor, unspecified (principal); Z53.21 Procedure and treatment not carried out due to patient leaving prior to being seen by health care provider ==

== ENCOUNTER 2021-06-24 23:15 | Emergency (ER) | payer MEDICAID ==
[2021-06-24] MEDS ORDERED: Sodium Chloride 0.9% 1,000 ML IV ONE (23:56)
[2021-06-25] MEDS ORDERED: Iopamidol 612 MG/ML 100 ML Bottle IVPUSH ONE (00:17)
[2021-06-25 00:32] LABS: ANION GAP 14.6 mEq/L (7-13); CHLORIDE,CL 103 mmol/L (98-107); SODIUM,NA 140 mmol/L (136-145)
--- NOTE | 2021-06-25 01:12 | CT ---
PROCEDURE INFORMATION: Exam: CT Abdomen And Pelvis Without Contrast Exam date and time: 06/25/2021 12:31 AM Age: 21 years old Clinical indication: Other: Rlq pain TECHNIQUE: Imaging protocol: Computed tomography of the abdomen and pelvis without contrast. Radiation optimization: All CT scans at this facility use at least one of these dose optimization techniques: automated exposure control; mA and/or kV adjustment per patient size (includes targeted exams where dose is matched to clinical indication); or iterative reconstruction. COMPARISON: No relevant prior studies available. FINDINGS: Liver: Diffuse mild to moderate fatty liver change. Gallbladder and bile ducts: Contracted gallbladder. No gallstones or biliary dilatation. Pancreas: The pancreas is normal in contour and attenuation. Spleen: Normal. No splenomegaly. Adrenal glands: Normal. No mass. Kidneys and ureters: No hydronephrosis or renal calculi. Stomach and bowel: Unremarkable. No obstruction. No mucosal thickening. Appendix: A non inflamed appendix is visible. See series 2, images 56 through 63. Intraperitoneal space: Unremarkable. No free air. No significant fluid collection. Vasculature: Unremarkable. No abdominal aortic aneurysm. Lymph nodes: Unremarkable. No enlarged lymph nodes. Urinary bladder: Unremarkable as visualized. Reproductive: Unremarkable as visualized. Bones/joints: Unremarkable. No acute fracture. Soft tissues: Minor bilateral fat containing inguinal hernias without acute strangulation.. IMPRESSION: 1. No acute findings of the abdomen or pelvis. 2. Non inflamed appendix is visible. 3. No gallstones or biliary tract disease. 4. No hydronephrosis or renal calculi. 5. Fatty liver.
--- NOTE | 2021-06-25 01:19 | EDM.PDOC ---
ED HPI GENERAL MEDICAL PROBLEM - General Chief Complaint: Abdominal Pain Stated Complaint: LOWER RIGHT IN ABDOMIN, BENT OVER AND FELT A POP Time Seen by Provider: 06/24/21 23:35 Source of Information: Reports: Patient History Limitations: Reports: No Limitations - History of Present Illness INITIAL COMMENTS - FREE TEXT/NARRATIVE: ED with c/o pain to right side fo abdomen, started with sudden onset while bending over while doing dishes. Emesis x 1 . Had felt fine to day and preceeding onset .Pain 8/10. No nausea at present. no fever, No urinary symptoms. Describes pain as sharp. Right Abdomen Pain Score (Numeric/FACES): 8 - Related Data Allergies Allergy/AdvReac Type Severity Reaction Status Date / Time amoxicillin Allergy Rash Verified 03/31/21 20:23 Home Meds: Home Meds Aspirin 81 mg PO DAILY 06/16/20 [History] atorvaSTATin [Lipitor] 40 mg PO DAILY 06/16/20 [History] buPROPion [buPROPion XL] 150 mg PO DAILY 06/16/20 [History] Past Medical History - Past Health History Medical/Surgical History: Denies Medical/Surgical History HEENT History: Reports: None Cardiovascular History: Reports: High Cholesterol Respiratory History: Reports: None Gastrointestinal History: Reports: None Genitourinary History: Reports: None Musculoskeletal History: Reports: Other (See Below) Other Musculoskeletal History: Lt wrist fx. Hip left problems Neurological History: Reports: None Other Neuro History: CVA vs TIA vs ? Psychiatric History: Reports: Anxiety, Depression, Other (See Below) Other Psychiatric History: issues with sleeping Endocrine/Metabolic History: Reports: None Hematologic History: Reports: None Immunologic History: Reports: None Oncologic (Cancer) History: Reports: None Dermatologic History: Reports: None - Infectious Disease History Infectious Disease History: Reports: None - Past Surgical History Head Surgeries/Procedures: Reports: None Social & Family History - Family History Family Medical History: No Pertinent Family History Respiratory: Reports: Asthma - Tobacco Use Tobacco Use Status *Q: Never Tobacco User Second Hand Smoke Exposure: No - Caffeine Use Caffeine Use: Reports: Coffee, Energy Drinks, Soda, Tea, Other Caffeine Use Comment: occassional ED ROS GENERAL - Review of Systems Review Of Systems: Comprehensive ROS is negative, except as noted in HPI. ED EXAM, GI/ABD - Physical Exam Exam: See Below Exam Limited By: No Limitations General Appearance: Alert, Anxious, Mild Distress Ears: Normal External Exam, Hearing Grossly Normal Nose: Normal Inspection Throat/Mouth: Normal Inspection Head: Atraumatic, Normocephalic Neck: Normal Inspection Respiratory/Chest: No Respiratory Distress, Lungs Clear, Normal Breath Sounds Cardiovascular: Normal Peripheral Pulses, Regular Rate, Rhythm GI/Abdominal Exam: Normal Bowel Sounds, Tender (mild right middle abdomen), Abnormal Bowel Sounds (hyperactive right lower) Extremities: Normal Inspection, Normal Range of Motion Neurological: Alert, Oriented Psychiatric: Anxious Skin Exam: Warm, Dry, Intact Course - Vital Signs Last Recorded V/S: Last Vital Signs Temp 96.8 F L 06/24/21 23:34 Pulse 88 06/24/21 23:34 Resp 18 06/24/21 23:34 BP 163/92 H 06/24/21 23:34 Pulse Ox 97 06/24/21 23:34 - Orders/Labs/Meds Orders: Active Orders 24 hr Category Date Time Status Abdomen Pelvis w Cont [CT] Urgent Exams 06/25/21 00:17 Stop Req Labs: Laboratory Tests 06/24/21 06/24/21 06/24/21 Range/Units 23:50 23:50 23:50 WBC 7.8 (5.0-10.0) 10^3/uL RBC 4.81 (4.6-6.2) 10^6/uL Hgb 14.5 (14.0-18.0) g/dL Hct 42.5 (40.0-54.0) % MCV 88.4 (80-100) fL MCH 30.1 (27.0-34.0) pg MCHC 34.1 (33.0-35.0) g/dL Plt Count 209 (150-450) 10^3/uL Neut % (Auto) 43.0 (42.2-75.2) % Lymph % (Auto) 48.1 (20.5-50.1) % [place] % (Auto) 7.2 (2-8) % Eos % (Auto) 1.2 (1.0-3.0) % Baso % (Auto) 0.5 (0.0-1.0) % Sodium 140 (136-145) mmol/L Potassium 3.6 (3.5-5.1) mmol/L Chloride 103 (98-107) mmol/L Carbon Dioxide 26 (21-32) mmol/L Anion Gap 14.6 H (7-13) mEq/L BUN 16 (7-18) mg/dL Creatinine 1.11 (0.70-1.30) mg/dL Est Cr Clr Drug Dosing 112.12 mL/min Estimated GFR (MDRD) > 60 BUN/Creatinine Ratio 14.4 (No establ ref range) Glucose 99 (70-99) mg/dL Lactic Acid 1.2 (0.4-2.0) mmol/L Calcium 8.9 (8.5-10.1) mg/dL Total Bilirubin 0.3 (0.2-1.0) mg/dL AST 22 (15-37) U/L ALT 37 (16-63) U/L Alkaline Phosphatase 88 (46-116) U/L Total Protein 7.4 (6.4-8.2) g/dL Albumin 4.1 (3.4-5.0) g/dL Globulin 3.3 Albumin/Globulin Ratio 1.2 Urine Color (YELLOW) Urine Appearance (CLEAR) Urine pH (5.0-9.0) Ur Specific [place] (1.005-1.030) Urine Protein (NEGATIVE) Urine Glucose (UA) (NEGATIVE) Urine Ketones (NEGATIVE) Urine Occult Blood (NEGATIVE) Urine Nitrite (NEGATIVE) Urine Bilirubin (NEGATIVE) Urine Urobilinogen (0.2-1.0) mg/dL Ur Leukocyte Esterase (NEGATIVE) 06/25/21 Range/Units 00:46 WBC (5.0-10.0) 10^3/uL RBC (4.6-6.2) 10^6/uL Hgb (14.0-18.0) g/dL Hct (40.0-54.0) % MCV (80-100) fL MCH (27.0-34.0) pg MCHC (33.0-35.0) g/dL Plt Count (150-450) 10^3/uL Neut % (Auto) (42.2-75.2) % Lymph % (Auto) (20.5-50.1) % [place] % (Auto) (2-8) % Eos % (Auto) (1.0-3.0) % Baso % (Auto) (0.0-1.0) % Sodium (136-145) mmol/L Potassium (3.5-5.1) mmol/L Chloride (98-107) mmol/L Carbon Dioxide (21-32) mmol/L Anion Gap (7-13) mEq/L BUN (7-18) mg/dL Creatinine (0.70-1.30) mg/dL Est Cr Clr Drug Dosing mL/min Estimated GFR (MDRD) BUN/Creatinine Ratio (No establ ref range) Glucose (70-99) mg/dL Lactic Acid (0.4-2.0) mmol/L Calcium (8.5-10.1) mg/dL Total Bilirubin (0.2-1.0) mg/dL AST (15-37) U/L ALT (16-63) U/L Alkaline Phosphatase (46-116) U/L Total Protein (6.4-8.2) g/dL Albumin (3.4-5.0) g/dL Globulin Albumin/Globulin Ratio Urine Color Yellow (YELLOW) Urine Appearance Clear (CLEAR) Urine pH 7.0 (5.0-9.0) Ur Specific [place] >= 1.030 (1.005-1.030) Urine Protein Negative (NEGATIVE) Urine Glucose (UA) Negative (NEGATIVE) Urine Ketones Negative (NEGATIVE) Urine Occult Blood Negative (NEGATIVE) Urine Nitrite Negative (NEGATIVE) Urine Bilirubin Negative (NEGATIVE) Urine Urobilinogen 0.2 (0.2-1.0) mg/dL Ur Leukocyte Esterase Negative (NEGATIVE) Meds: Medications Discontinued Medications Generic Name Dose Route Start Last Admin Trade Name Freq PRN Reason Stop Dose Admin Sodium Chloride 1,000 mls @ 999 mls/hr 06/24/21 23:56 06/25/21 00:07 Normal Saline IV 06/25/21 00:56 999 mls/hr .BOLUS ONE Administration Iopamidol 100 ml 06/25/21 00:17 Iopamidol 612 Mg/Ml 100 Ml Bottle IVPUSH 06/25/21 00:18 ONETIME ONE Departure - Departure Time of Disposition: 01:13 Disposition: Home, Self-Care 01 Condition: Good Clinical Impression: Abdominal pain Qualifiers: Abdominal location: right lower quadrant Qualified Code(s): R10.31 - Right lower quadrant pain - Discharge Information *PRESCRIPTION DRUG MONITORING PROGRAM REVIEWED*: No *COPY OF PRESCRIPTION DRUG MONITORING REPORT IN PATIENT DAVID: No Instructions: Constipation, Adult, [id number], Abdominal Pain, Adult, Easy-to -Read Additional Instructions: Increase fluids increase fruit and fiber in diet miralax one capfuls daily in 8 ounces liquid for constipation tylenol 650mg every 4 hours as needed for discomfort clinic follow up 2-3 days if not improving Sepsis Event Note (ED) - Evaluation Sepsis Screening Result: No Definite Risk - Focused Exam Vital Signs: Vital Signs Temp Pulse Resp BP Pulse Ox 06/24/21 23:34 96.8 F L 88 18 163/92 H 97 - My Orders Last 24 Hours: My Active Orders 06/25/21 00:17 Abdomen Pelvis w Cont [CT] Urgent - Assessment/Plan Last 24 Hours: My Active Orders 06/25/21 00:17 Abdomen Pelvis w Cont [CT] Urgent
== END 2021-06-25 01:33 | disposition home or self-care (01) ==
LOC: DL.ED 23:15
DX: R10.31 Right lower quadrant pain (principal); E78.00 Pure hypercholesterolemia, unspecified; Z88.0 Allergy status to penicillin; Z79.82 Long term (current) use of aspirin; Z79.899 Other long term (current) drug therapy
CPT/HCPCS: 36415; 74176; 80053; 81003; 83605; 85025; 99284-25; J7030

== ENCOUNTER 2021-07-02 22:15 | Emergency (ER) | payer MEDICAID ==
[2021-07-02] MEDS ORDERED: Tetracaine HCl/PF 0.5% 4 ML Bottle EYERT ONE (22:38)
[2021-07-02] MEDS ORDERED: Fluorescein 1 MG Ophth Strip EYERT ONE (22:38)
--- NOTE | 2021-07-02 22:58 | EDM.PDOC ---
ED HPI GENERAL MEDICAL PROBLEM - General Chief Complaint: Bite:Animal, Insect Stated Complaint: DOG SCRATCHED EYE Time Seen by Provider: 07/02/21 22:56 Source of Information: Reports: Patient History Limitations: Reports: No Limitations - History of Present Illness INITIAL COMMENTS - FREE TEXT/NARRATIVE: ED with c/o pain right eye since about 8 pm after playing with lab type dog tht scratched right eye. Blurred vision. No other injury. Family pet. - Related Data Allergies Allergy/AdvReac Type Severity Reaction Status Date / Time amoxicillin Allergy Rash Verified 03/31/21 20:23 Home Meds: Home Meds Aspirin 81 mg PO DAILY 06/16/20 [History] atorvaSTATin [Lipitor] 40 mg PO DAILY 06/16/20 [History] buPROPion [buPROPion XL] 150 mg PO DAILY 06/16/20 [History] Past Medical History - Past Health History Medical/Surgical History: Denies Medical/Surgical History HEENT History: Reports: None Cardiovascular History: Reports: High Cholesterol Respiratory History: Reports: None Gastrointestinal History: Reports: None Genitourinary History: Reports: None Musculoskeletal History: Reports: Other (See Below) Other Musculoskeletal History: Lt wrist fx. Hip left problems Neurological History: Reports: None Other Neuro History: CVA vs TIA vs ? Psychiatric History: Reports: Anxiety, Depression, Other (See Below) Other Psychiatric History: issues with sleeping Endocrine/Metabolic History: Reports: None Hematologic History: Reports: None Immunologic History: Reports: None Oncologic (Cancer) History: Reports: None Dermatologic History: Reports: None - Infectious Disease History Infectious Disease History: Reports: None - Past Surgical History Head Surgeries/Procedures: Reports: None Social & Family History - Family History Family Medical History: No Pertinent Family History Respiratory: Reports: Asthma - Tobacco Use Tobacco Use Status *Q: Never Tobacco User Second Hand Smoke Exposure: Yes - Caffeine Use Caffeine Use: Reports: Coffee, Energy Drinks, Soda, Tea, Other Caffeine Use Comment: occassional ED ROS GENERAL - Review of Systems Review Of Systems: Comprehensive ROS is negative, except as noted in HPI. ED EXAM, ANIMAL BITE - Physical Exam Exam: See Below Exam Limited By: No Limitations General Appearance: Alert, Anxious Eye Exam: Bilateral Eye: EOMI (no sign of injury, no injection no bleeding, no gross abnormality), PERRL Ears: Normal External Exam Nose: Normal Inspection Throat/Mouth: Normal Inspection Neck: Normal Inspection Respiratory/Chest: No Respiratory Distress, Lungs Clear, Normal Breath Sounds Cardiovascular: Normal Peripheral Pulses, Regular Rate, Rhythm GI/Abdominal: Normal Bowel Sounds Extremities: Normal Inspection, Normal Range of Motion Neurological: Alert, Oriented, Normal Cognition Psychiatric: Anxious Skin Exam: Normal Color, Warm/Dry Course - Vital Signs Last Recorded V/S: Last Vital Signs Temp 98.7 F 07/02/21 22:32 Pulse 85 07/02/21 22:32 Resp 20 07/02/21 22:32 BP 139/91 H 07/02/21 22:32 Pulse Ox 95 07/02/21 22:32 - Orders/Labs/Meds Meds: Medications Discontinued Medications Generic Name Dose Route Start Last Admin Trade Name Sada PRN Reason Stop Dose Admin Fluorescein Sodium 1 mg 07/02/21 22:38 07/02/21 22:48 Fluorescein 1 Mg Ophth Strip EYERT 07/02/21 22:39 1 mg ONETIME ONE Administration Tetracaine HCl 1 ml 07/02/21 22:38 07/02/21 22:48 Tetracaine Hcl/Pf 0.5% 4 Ml Bottle EYERT 07/02/21 22:39 1 ml ASDIRECTED ONE Administration Departure - Departure Time of Disposition: 22:52 Disposition: Home, Self-Care 01 Condition: Good Clinical Impression: Pain, eye, right - Discharge Information *PRESCRIPTION DRUG MONITORING PROGRAM REVIEWED*: No *COPY OF PRESCRIPTION DRUG MONITORING REPORT IN PATIENT DAVID: No Instructions: Photophobia Additional Instructions: eye moisturizing drops as desired tylenol 500mg every 4 hours as needed for discomfort follow up clinic wednesday if not improving or crusty drainage from eye Sepsis Event Note (ED) - Evaluation Sepsis Screening Result: No Definite Risk - Focused Exam Vital Signs: Vital Signs Temp Pulse Resp BP Pulse Ox 07/02/21 22:32 98.7 F 85 20 139/91 H 95
== END 2021-07-02 23:09 | disposition home or self-care (01) ==
LOC: DL.ED 22:15
DX: H57.11 Ocular pain, right eye (principal); E78.00 Pure hypercholesterolemia, unspecified; Z77.22 Contact with and (suspected) exposure to environmental tobacco smoke (acute) (chronic); Z88.0 Allergy status to penicillin; Z79.82 Long term (current) use of aspirin; Z79.899 Other long term (current) drug therapy
CPT/HCPCS: 99283

== ENCOUNTER 2021-07-11 20:41 | Emergency (ER) | payer MEDICAID ==
--- NOTE | 2021-07-11 20:23 | EDM.PDOC ---
ED HPI GENERAL MEDICAL PROBLEM - General Stated Complaint: AMBULANCE Time Seen by Provider: 07/11/21 20:23 Source of Information: Reports: Patient, EMS, Police (Edyta GARDINER), RN, RN Notes Reviewed History Limitations: Reports: Altered Mental Status - History of Present Illness INITIAL COMMENTS - FREE TEXT/NARRATIVE: Jillian is a 21 y/o male who presents to the ED via [facility] with complaints of altered mental status. Upon arrival to the emergency department, the patient is nonverbal but tracking. Following CT head, the patient is slow to respond to questions verbally, but is able to state name; he moves all extremities with equal strength. The patient states he became confused after work and does not remember attempting to drive home. This proposal manager writer spoke with the patient's girlfriend who states the patient occasionally experiences similar episodes when stressed, including difficulty with expressive speech and extremity movement, however she felt this episode was worse than previous. She reports he was evaluated at [facility] approximately one year prior for similar symptoms. The patient attest to headache, but denies pain to his trunk or extremities. He denies recent falls or head trauma. He denies recent illness, shaking chills, vision changes, dizziness, chest pain/pressure, palpitations, shortness of breath, nausea, vomiting, or diarrhea. He is not vaccinated for COVID-19 or influenza. He denies tobacco, alcohol, or recreational drug use. Left Anterior Frontal Headache Pain Score (Numeric/FACES): 4 - Related Data Allergies Allergy/AdvReac Type Severity Reaction Status Date / Time amoxicillin Allergy Rash Verified 03/31/21 20:23 Home Meds: Home Meds Aspirin 81 mg PO DAILY 06/16/20 [History] atorvaSTATin [Lipitor] 40 mg PO DAILY 06/16/20 [History] buPROPion [buPROPion XL] 150 mg PO DAILY 06/16/20 [History] Past Medical History - Past Health History Medical/Surgical History: Denies Medical/Surgical History HEENT History: Reports: None Cardiovascular History: Reports: High Cholesterol Respiratory History: Reports: None Gastrointestinal History: Reports: None Genitourinary History: Reports: None Musculoskeletal History: Reports: Other (See Below) Other Musculoskeletal History: Lt wrist fx. Hip left problems Neurological History: Reports: None Other Neuro History: CVA vs TIA vs ? Psychiatric History: Reports: Anxiety, Depression, Other (See Below) Other Psychiatric History: issues with sleeping Endocrine/Metabolic History: Reports: None Hematologic History: Reports: None Immunologic History: Reports: None Oncologic (Cancer) History: Reports: None Dermatologic History: Reports: None - Infectious Disease History Infectious Disease History: Reports: None - Past Surgical History Head Surgeries/Procedures: Reports: None Social & Family History - Family History Family Medical History: No Pertinent Family History Respiratory: Reports: Asthma - Caffeine Use Caffeine Use: Reports: Coffee, Energy Drinks, Soda, Tea, Other Caffeine Use Comment: occassional ED ROS GENERAL - Review of Systems Review Of Systems: Comprehensive ROS is negative, except as noted in HPI. ED EXAM, NEURO - Physical Exam Exam: See Below Exam Limited By: Altered Mental Status General Appearance: Alert, No Apparent Distress Eye Exam: Bilateral Eye: EOMI, Normal Inspection, PERRL (3mm) Nose: Normal Inspection Throat/Mouth: Normal Inspection, Normal Lips, Normal Teeth, Normal Gums, Normal Oropharynx, Normal Voice, No Airway Compromise Head Exam: Atraumatic, Normocephalic Neck: Normal Inspection, Supple, Non-Tender, Full Range of Motion. No: Lymphadenopathy (L), Lymphadenopathy (R) Respiratory/Chest: No Respiratory Distress, Lungs Clear, Normal Breath Sounds, No Accessory Muscle Use, Chest Non-Tender Cardiovascular: Normal Peripheral Pulses, Regular Rate, Rhythm, No Gallop, No Murmur, No Rub GI/Abdominal: Normal Bowel Sounds, Soft, Non-Tender, No Distention, No Abnormal Bruit, No Mass, Pelvis Stable (Male) Exam: Deferred Rectal (Males) Exam: Deferred Neurological: Alert, Normal Dorsiflexion, Normal Plantar Flexion, Oriented x 3, Withdraws to Pain, Straight Leg Raise (L), Straight Leg Raise (R), Other (Stuttering speech, patient states is new). No: Abnormal Finger to Nose, Abnormal Sensation, Abnormal Light Touch, Abnormal Motor, Abnormal Pin Prick, Abn 2 Pt Discrimination, Saddle Anesthesia Back Exam: Normal Inspection, Full Range of Motion Extremities: Normal Inspection, Normal Range of Motion, Non-Tender, No Pedal Edema, Normal Capillary Refill Psychiatric: Normal Mood, Flat Affect Skin Exam: Warm, Intact, Normal Color, No Rash, Diaphoretic. No: Cyanosis, Jaundice, Mottled, Pallor #1 Interpretation EKG Date: 07/11/21 Time: 20:33 Rhythm: NSR Rate (Beats/Min): 84 Boyds: Normal P-Wave: Present QRS: Normal ST-T: Normal QT: Normal DC/PQ Interval: 0.133 Comparison: No Change EKG Interpretation Comments: NSR; q-wave in III; No evidence of acute myocardial ischemia Course - Vital Signs Last Recorded V/S: Last Vital Signs Temp 98.2 F 07/11/21 21:40 Pulse 86 07/11/21 20:42 Resp 24 H 07/11/21 20:42 BP 141/70 H 07/11/21 20:42 Pulse Ox 100 07/11/21 20:42 - Orders/Labs/Meds Labs: Laboratory Tests 07/11/21 07/11/21 07/11/21 Range/Units 20:35 20:35 20:35 WBC 6.9 (5.0-10.0) 10^3/uL RBC 5.46 (4.6-6.2) 10^6/uL Hgb 16.4 D (14.0-18.0) g/dL Hct 47.6 (40.0-54.0) % MCV 87.2 (80-100) fL MCH 30.0 (27.0-34.0) pg MCHC 34.5 (33.0-35.0) g/dL Plt Count 230 (150-450) 10^3/uL Neut % (Auto) 47.1 (42.2-75.2) % Lymph % (Auto) 45.0 (20.5-50.1) % Ada % (Auto) 6.3 (2-8) % Eos % (Auto) 1.0 (1.0-3.0) % Baso % (Auto) 0.6 (0.0-1.0) % Sodium 139 (136-145) mmol/L Potassium 3.9 (3.5-5.1) mmol/L Chloride 102 (98-107) mmol/L Carbon Dioxide 25 (21-32) mmol/L Anion Gap 15.9 H (7-13) mEq/L BUN 16 (7-18) mg/dL Creatinine 1.21 (0.70-1.30) mg/dL Est Cr Clr Drug Dosing TNP Estimated GFR (MDRD) > 60 BUN/Creatinine Ratio 13.2 (No establ ref range) Glucose 104 H (70-99) mg/dL Calcium 8.9 (8.5-10.1) mg/dL Phosphorus 2.3 L (2.6-4.7) mg/dL Magnesium 2.3 (1.8-2.4) mg/dL Total Bilirubin 0.3 (0.2-1.0) mg/dL AST 29 (15-37) U/L ALT 38 (16-63) U/L Alkaline Phosphatase 96 (46-116) U/L Ammonia (11-32) umol/L Troponin I High Sens 4 (<=76) pg/mL C-Reactive Protein < 0.2 (0.0-0.9) mg/dL Total Protein 8.3 H (6.4-8.2) g/dL Albumin 4.7 (3.4-5.0) g/dL Globulin 3.6 Albumin/Globulin Ratio 1.3 TSH, Ultra Sensitive 2.02 (0.36-3.74) uIU/mL Urine Color (YELLOW) Urine Appearance (CLEAR) Urine pH (5.0-9.0) Ur Specific [place] (1.005-1.030) Urine Protein (NEGATIVE) Urine Glucose (UA) (NEGATIVE) Urine Ketones (NEGATIVE) Urine Occult Blood (NEGATIVE) Urine Nitrite (NEGATIVE) Urine Bilirubin (NEGATIVE) Urine Urobilinogen (0.2-1.0) mg/dL Ur Leukocyte Esterase (NEGATIVE) Urine RBC (0-5) /HPF Urine WBC (0-5/HPF) /HPF Ur Epithelial Cells (NOT SEEN) /HPF Amorphous Sediment (NOT SEEN) /HPF Urine Mucus (NOT SEEN) /LPF Urine Opiates Screen (NEGATIVE) Ur Oxycodone Screen (NEGATIVE) Urine Methadone Screen (NEGATIVE) Ur Barbiturates Screen (NEGATIVE) U Tricyclic Antidepress (NEGATIVE) Ur Phencyclidine Scrn (NEGATIVE) Ur Amphetamine Screen (NEGATIVE) U Methamphetamines Scrn (NEGATIVE) Urine MDMA Screen (NEGATIVE) U Benzodiazepines Scrn (NEGATIVE) Urine Cocaine Screen (NEGATIVE) U Marijuana (THC) Screen (NEGATIVE) Ethyl Alcohol < 3 (0) mg/dL Influenza Type A RNA (NEGATIVE) Influenza Type B RNA (NEGATIVE) SARS-CoV-2 RNA (REYNOLD) (NEGATIVE) 07/11/21 07/11/21 07/11/21 Range/Units 20:35 20:57 23:15 WBC (5.0-10.0) 10^3/uL RBC (4.6-6.2) 10^6/uL Hgb (14.0-18.0) g/dL Hct (40.0-54.0) % MCV (80-100) fL MCH (27.0-34.0) pg MCHC (33.0-35.0) g/dL Plt Count (150-450) 10^3/uL Neut % (Auto) (42.2-75.2) % Lymph % (Auto) (20.5-50.1) % Ada % (Auto) (2-8) % Eos % (Auto) (1.0-3.0) % Baso % (Auto) (0.0-1.0) % Sodium (136-145) mmol/L Potassium (3.5-5.1) mmol/L Chloride (98-107) mmol/L Carbon Dioxide (21-32) mmol/L Anion Gap (7-13) mEq/L BUN (7-18) mg/dL Creatinine (0.70-1.30) mg/dL Est Cr Clr Drug Dosing Estimated GFR (MDRD) BUN/Creatinine Ratio (No establ ref range) Glucose (70-99) mg/dL Calcium (8.5-10.1) mg/dL Phosphorus (2.6-4.7) mg/dL Magnesium (1.8-2.4) mg/dL Total Bilirubin (0.2-1.0) mg/dL AST (15-37) U/L ALT (16-63) U/L Alkaline Phosphatase (46-116) U/L Ammonia 13 (11-32) umol/L Troponin I High Sens (<=76) pg/mL C-Reactive Protein (0.0-0.9) mg/dL Total Protein (6.4-8.2) g/dL Albumin (3.4-5.0) g/dL Globulin Albumin/Globulin Ratio TSH, Ultra Sensitive (0.36-3.74) uIU/mL Urine Color Yellow (YELLOW) Urine Appearance Clear (CLEAR) Urine pH 8.0 (5.0-9.0) Ur Specific [place] 1.020 (1.005-1.030) Urine Protein 30 H (NEGATIVE) Urine Glucose (UA) Negative (NEGATIVE) Urine Ketones Negative (NEGATIVE) Urine Occult Blood Negative (NEGATIVE) Urine Nitrite Negative (NEGATIVE) Urine Bilirubin Negative (NEGATIVE) Urine Urobilinogen 1.0 (0.2-1.0) mg/dL Ur Leukocyte Esterase Negative (NEGATIVE) Urine RBC 0-5 (0-5) /HPF Urine WBC 0-5 (0-5/HPF) /HPF Ur Epithelial Cells Few (NOT SEEN) /HPF Amorphous Sediment Few (NOT SEEN) /HPF Urine Mucus Moderate H (NOT SEEN) /LPF Urine Opiates Screen (NEGATIVE) Ur Oxycodone Screen (NEGATIVE) Urine Methadone Screen (NEGATIVE) Ur Barbiturates Screen (NEGATIVE) U Tricyclic Antidepress (NEGATIVE) Ur Phencyclidine Scrn (NEGATIVE) Ur Amphetamine Screen (NEGATIVE) U Methamphetamines Scrn (NEGATIVE) Urine MDMA Screen (NEGATIVE) U Benzodiazepines Scrn (NEGATIVE) Urine Cocaine Screen (NEGATIVE) U Marijuana (THC) Screen (NEGATIVE) Ethyl Alcohol (0) mg/dL Influenza Type A RNA Negative (NEGATIVE) Influenza Type B RNA Negative (NEGATIVE) SARS-CoV-2 RNA (REYNOLD) Negative (NEGATIVE) 07/11/21 Range/Units 23:15 WBC (5.0-10.0) 10^3/uL RBC (4.6-6.2) 10^6/uL Hgb (14.0-18.0) g/dL Hct (40.0-54.0) % MCV (80-100) fL MCH (27.0-34.0) pg MCHC (33.0-35.0) g/dL Plt Count (150-450) 10^3/uL Neut % (Auto) (42.2-75.2) % Lymph % (Auto) (20.5-50.1) % Ada % (Auto) (2-8) % Eos % (Auto) (1.0-3.0) % Baso % (Auto) (0.0-1.0) % Sodium (136-145) mmol/L Potassium (3.5-5.1) mmol/L Chloride (98-107) mmol/L Carbon Dioxide (21-32) mmol/L Anion Gap (7-13) mEq/L BUN (7-18) mg/dL Creatinine (0.70-1.30) mg/dL Est Cr Clr Drug Dosing Estimated GFR (MDRD) BUN/Creatinine Ratio (No establ ref range) Glucose (70-99) mg/dL Calcium (8.5-10.1) mg/dL Phosphorus (2.6-4.7) mg/dL Magnesium (1.8-2.4) mg/dL Total Bilirubin (0.2-1.0) mg/dL AST (15-37) U/L ALT (16-63) U/L Alkaline Phosphatase (46-116) U/L Ammonia (11-32) umol/L Troponin I High Sens (<=76) pg/mL C-Reactive Protein (0.0-0.9) mg/dL Total Protein (6.4-8.2) g/dL Albumin (3.4-5.0) g/dL Globulin Albumin/Globulin Ratio TSH, Ultra Sensitive (0.36-3.74) uIU/mL Urine Color (YELLOW) Urine Appearance (CLEAR) Urine pH (5.0-9.0) Ur Specific [place] (1.005-1.030) Urine Protein (NEGATIVE) Urine Glucose (UA) (NEGATIVE) Urine Ketones (NEGATIVE) Urine Occult Blood (NEGATIVE) Urine Nitrite (NEGATIVE) Urine Bilirubin (NEGATIVE) Urine Urobilinogen (0.2-1.0) mg/dL Ur Leukocyte Esterase (NEGATIVE) Urine RBC (0-5) /HPF Urine WBC (0-5/HPF) /HPF Ur Epithelial Cells (NOT SEEN) /HPF Amorphous Sediment (NOT SEEN) /HPF Urine Mucus (NOT SEEN) /LPF Urine Opiates Screen Negative (NEGATIVE) Ur Oxycodone Screen Negative (NEGATIVE) Urine Methadone Screen Negative (NEGATIVE) Ur Barbiturates Screen Negative (NEGATIVE) U Tricyclic Antidepress Negative (NEGATIVE) Ur Phencyclidine Scrn Negative (NEGATIVE) Ur Amphetamine Screen Negative (NEGATIVE) U Methamphetamines Scrn Negative (NEGATIVE) Urine MDMA Screen Negative (NEGATIVE) U Benzodiazepines Scrn Negative (NEGATIVE) Urine Cocaine Screen Negative (NEGATIVE) U Marijuana (THC) Screen Negative (NEGATIVE) Ethyl Alcohol (0) mg/dL Influenza Type A RNA (NEGATIVE) Influenza Type B RNA (NEGATIVE) SARS-CoV-2 RNA (REYNOLD) (NEGATIVE) Meds: Medications Discontinued Medications Generic Name Dose Route Start Last Admin Trade Name Freq PRN Reason Stop Dose Admin Acetaminophen 1,000 mg 07/11/21 21:05 07/11/21 21:18 Acetaminophen 500 Mg Tab PO 07/11/21 21:06 1,000 mg ONETIME ONE Administration Acetaminophen 650 mg 07/11/21 21:15 07/11/21 21:19 Acetaminophen 650 Mg Supp RECTAL 07/11/21 21:16 Not Given NOW STA Sodium Chloride 1,000 mls @ 999 mls/hr 07/11/21 21:21 07/11/21 21:29 Normal Saline IV 07/11/21 22:21 999 mls/hr .BOLUS ONE Administration Venlafaxine HCl 75 mg 07/12/21 21:00 07/12/21 00:43 Venlafaxine 37.5 Mg Cap.Er PO Not Given BEDTIME NAHED - Radiology Interpretation Free Text/Narrative:: [facility] Final Radiology Report Call: [phone] assistance Online chat: [email or web address] Name: JILLIAN JESUS Age: 21Years M Date: 07/11/2021 SSN: -- : 2000 Study: CT HEAD WO CONT Requesting Physician: Clemencia Woo Images: 145 Addl Studies: Provided Clinical History: Stroke protocol Contrast: Without Contrast Medium: Contrast Amount: Contrast Method: Page 1 of 2 PROCEDURE INFORMATION: Exam: CT Head Without Contrast Exam date and time: 07/11/2021 8:26 PM Age: 21 years old Clinical indication: Other: Facial droop; Additional info: Stroke protocol TECHNIQUE: Imaging protocol: Computed tomography of the head without contrast. Radiation optimization: All CT scans at this facility use at least one of these dose optimization techniques: automated exposure control; mA and/or kV adjustment per patient size (includes targeted exams where dose is matched to clinical indication); or iterative reconstruction. Other technique: STROKE PROTOCOL was implemented. COMPARISON: MR Brain wo Cont 04/30/2020 11:34 AM FINDINGS: Brain: Unremarkable. No hemorrhage or acute infarction. Unremarkable white matter. No midline shift or mass effect. Cerebral ventricles: No ventriculomegaly. Paranasal sinuses: Visualized sinuses are clear. Mastoid air cells: Mastoid air cells are clear. Bones/joints: Unremarkable. No acute fracture. Soft tissues: Unremarkable. IMPRESSION: No acute intracranial abnormality. ASSESSMENT: ASPECTS ([place] Stroke Program Early CT Score) is 10. Thank you for allowing us to participate in the care of your patient. Dictated and Authenticated by: Ron Peñaloza MD 07/11/2021 8:39 PM Central Time ([place] & [place]) - Re-Assessments/Exams Free Text/Narrative Re-Assessment/Exam: 07/11/21 COVID/Influenza sent. CT head obtained. 1L NS bolus administered. Findings of examination, lab work, and imaging reviewed with patient. He continues to experience stuttering speech. He attests to a history of PTSD and notes he has not taken his Effexor or Atarax today. Discussed potential need for transfer for neurology evaluation given persistent changes to speech pattern; patient requesting to speak with his fiance. Patient's fiance spoke with proposal manager writer regarding a PTSD trigger event the patient experienced on his way to work this morning; the patient told his fiance he saw a suburban similar to his mothers'. He states he began to panic after work when he got into his car. Patient is requesting discharge home. Patient instructed to follow up with primary care provider regarding todays visit as well as to establish with a mental health provider. Red flag signs and symptoms which would warrant immediate reevaluation reviewed. Patient verbalized understanding and agreement with the plan of care. Departure - Departure Time of Disposition: 00:21 Disposition: Home, Self-Care 01 Condition: Good Clinical Impression: Panic attack, History of posttraumatic stress disorder (PTSD), Dehydration - Discharge Information *PRESCRIPTION DRUG MONITORING PROGRAM REVIEWED*: Not Applicable *COPY OF PRESCRIPTION DRUG MONITORING REPORT IN PATIENT DAVID: Not Applicable Instructions: Panic Attack Referrals: Gildardo Leahy NP [Primary Care Provider] - Forms: ED Department Discharge Additional Instructions: 1.) Continue on your previously prescribed medications; you may take a dose of hydroxyzine should you feel increased anxiety. 2.) Follow up with your primary care provider in 2-3 days. 3.) Establish with a mental health provider in the upcoming week. Sepsis Event Note (ED) - Focused Exam Vital Signs: Vital Signs Temp Pulse Resp BP Pulse Ox 07/11/21 21:40 98.2 F 07/11/21 20:42 100.1 F 86 24 H 141/70 H 100
--- NOTE | 2021-07-11 20:40 | CT ---
PROCEDURE INFORMATION: Exam: CT Head Without Contrast Exam date and time: 07/11/2021 8:26 PM Age: 21 years old Clinical indication: Other: Facial droop; Additional info: Stroke protocol TECHNIQUE: Imaging protocol: Computed tomography of the head without contrast. Radiation optimization: All CT scans at this facility use at least one of these dose optimization techniques: automated exposure control; mA and/or kV adjustment per patient size (includes targeted exams where dose is matched to clinical indication); or iterative reconstruction. Other technique: STROKE PROTOCOL was implemented. COMPARISON: MR Brain wo Cont 04/30/2020 11:34 AM FINDINGS: Brain: Unremarkable. No hemorrhage or acute infarction. Unremarkable white matter. No midline shift or mass effect. Cerebral ventricles: No ventriculomegaly. Paranasal sinuses: Visualized sinuses are clear. Mastoid air cells: Mastoid air cells are clear. Bones/joints: Unremarkable. No acute fracture. Soft tissues: Unremarkable. IMPRESSION: No acute intracranial abnormality. ASSESSMENT: ASPECTS ([place] Stroke Program Early CT Score) is 10.
[2021-07-11 21:11] LABS: ANION GAP 15.9 mEq/L (7-13); CHLORIDE,CL 102 mmol/L (98-107); SODIUM,NA 139 mmol/L (136-145)
[2021-07-11] MEDS ORDERED: Acetaminophen 650 MG Supp RECTAL STA (21:15)
[2021-07-11] MEDS: Acetaminophen 500 MG Tab PO ONE ×2 (21:15→21:18)
[2021-07-11] MEDS ORDERED: Sodium Chloride 0.9% 1,000 ML IV ONE (21:21)
[2021-07-11 21:50] LABS: CORONAVIRUS COVID-19 NAA NEGATIVE (NEGATIVE)
[2021-07-11 23:28] LABS: AMPHETAMINES,URINE NEGATIVE (NEGATIVE); BARBITURATES,URINE NEGATIVE (NEGATIVE); BENZODIAZEPINE,URINE NEGATIVE (NEGATIVE); MDMA (ECSTASY), URINE NEGATIVE (NEGATIVE); METHADONE,URINE NEGATIVE (NEGATIVE); METHAMPHETAMINES,URINE NEGATIVE (NEGATIVE); OPIATES,URINE NEGATIVE (NEGATIVE); OXYCODONE,URINE NEGATIVE (NEGATIVE); PHENCYCLIDINE,URINE NEGATIVE (NEGATIVE); TCA,URINE NEGATIVE (NEGATIVE)
[2021-07-12] MEDS ORDERED: Venlafaxine 37.5 MG Cap.ER PO SCH (21:00)
== END 2021-07-12 00:44 | disposition home or self-care (01) ==
LOC: DL.ED 20:41
DX: F41.0 Panic disorder [episodic paroxysmal anxiety] (principal); E86.0 Dehydration; E78.00 Pure hypercholesterolemia, unspecified; Z88.0 Allergy status to penicillin; Z79.82 Long term (current) use of aspirin; Z79.899 Other long term (current) drug therapy; Z20.822 Contact with and (suspected) exposure to COVID-19; Z86.59 Personal history of other mental and behavioral disorders
CPT/HCPCS: 0240U; 36415; 70450; 80053; 80305; 80307; 81001; 82140; 83735; 84100; 84443; 84484; 85025; 86140; 93005; 99285; A9270; J7030

== ENCOUNTER 2021-07-25 23:20 | Emergency (ER) | payer MEDICAID ==
--- NOTE | 2021-07-25 23:42 | EDM.PDOC ---
ED HPI GENERAL MEDICAL PROBLEM - General Chief Complaint: Chest Pain Stated Complaint: LEFT RIBS FELL, AT WORK Time Seen by Provider: 07/25/21 23:30 Source of Information: Reports: Patient History Limitations: Reports: No Limitations - History of Present Illness INITIAL COMMENTS - FREE TEXT/NARRATIVE: This 21 yo male patient reports to the ED with left rib pain due to a ground level fall. The patient reports he was at work and while taking out the trash he slipped on the ice and hit the left side of his ribs. The patient reports the fall happened at about 1999 today. The patient reports left lateral rib pain. Onset: Today Duration: Constant Location: Reports: Chest (left rib pain) Quality: Reports: Ache, Dull Severity: Mild Improves with: Reports: None Worsens with: Reports: None Context: Reports: Other Associated Symptoms: Reports: Chest Pain (left lateral chest wall) Left Lower Chest Pain Score (Numeric/FACES): 8 - Related Data Allergies Allergy/AdvReac Type Severity Reaction Status Date / Time amoxicillin Allergy Rash Verified 07/25/21 23:42 Home Meds: Home Meds Rosuvastatin [Crestor] 20 mg PO BEDTIME 07/25/21 [History] Venlafaxine HCl [Venlafaxine ER] 75 mg PO DAILY 07/25/21 [History] hydrOXYzine HCL [hydrOXYzine] 25 mg PO TID PRN 07/25/21 [History] Past Medical History - Past Health History Medical/Surgical History: Denies Medical/Surgical History HEENT History: Reports: None Cardiovascular History: Reports: High Cholesterol Respiratory History: Reports: None Gastrointestinal History: Reports: None Genitourinary History: Reports: None Musculoskeletal History: Reports: Other (See Below) Other Musculoskeletal History: Lt wrist fx. Hip left problems Neurological History: Reports: None Other Neuro History: CVA vs TIA vs ? Psychiatric History: Reports: Anxiety, Depression, Other (See Below) Other Psychiatric History: issues with sleeping Endocrine/Metabolic History: Reports: None Hematologic History: Reports: None Immunologic History: Reports: None Oncologic (Cancer) History: Reports: None Dermatologic History: Reports: None - Infectious Disease History Infectious Disease History: Reports: None - Past Surgical History Head Surgeries/Procedures: Reports: None Social & Family History - Family History Family Medical History: No Pertinent Family History Respiratory: Reports: Asthma - Caffeine Use Caffeine Use: Reports: Coffee, Energy Drinks, Soda, Tea, Other Caffeine Use Comment: occassional ED ROS GENERAL - Review of Systems Review Of Systems: Comprehensive ROS is negative, except as noted in HPI. ED EXAM, GENERAL - Physical Exam Exam: See Below Exam Limited By: No Limitations General Appearance: Alert, WD/WN, Mild Distress Eye Exam: Bilateral Eye: EOMI, Normal Inspection, PERRL Ears: Normal External Exam, Normal Canal, Hearing Grossly Normal, Normal TMs Nose: Normal Inspection, Normal Mucosa, No Blood Throat/Mouth: Normal Inspection, Normal Lips, Normal Teeth, Normal Gums, Normal Oropharynx, Normal Voice, No Airway Compromise Head: Atraumatic, Normocephalic Neck: Normal Inspection, Supple, Non-Tender, Full Range of Motion Respiratory/Chest: Other (left lateral lower rib pain) Cardiovascular: Normal Peripheral Pulses, Regular Rate, Rhythm, No Edema, No Gallop, No JVD, No Murmur, No Rub GI/Abdominal: Normal Bowel Sounds, Soft, Non-Tender, No Organomegaly, No Distention, No Abnormal Bruit, No Mass (Male) Exam: Deferred Rectal (Males) Exam: Deferred Back Exam: Normal Inspection, Full Range of Motion, NT Extremities: Normal Inspection, Normal Range of Motion, Non-Tender, Normal Capillary Refill, No Pedal Edema Neurological: Alert, Oriented, CN II-XII Intact, Normal Cognition, Normal Gait, Normal Reflexes, No Motor/Sensory Deficits Psychiatric: Normal Affect, Normal Mood Skin Exam: Warm, Dry, Intact, Normal Color, No Rash Lymphatic: No Adenopathy Course - Vital Signs Last Recorded V/S: Last Vital Signs Temp 98.8 F 07/25/21 23:37 Pulse 82 07/26/21 00:30 Resp 20 07/26/21 00:05 BP 122/65 07/26/21 00:30 Pulse Ox 96 07/26/21 00:30 - Radiology Interpretation Free Text/Narrative:: [facility] Final Radiology Report Call: [phone] assistance Online chat: [email or web address] Name: JILLIAN JESUS Age: 21Years M Date: 07/26/2021 SSN: -- : 2000 Study: CR RIBS 2V W CHEST LT Requesting Physician: Matthias Wild Images: 3 Addl Studies: Provided Clinical History: Ground level fall with left rib pain Contrast: Contrast Medium: Contrast Amount: Contrast Method: CONFIDENTIALITY STATEMENT This report is intended only for use by the referring physician, and only in accordance with law. If you received this in error, call [phone]. Page 1 of 1 PROCEDURE INFORMATION: Exam: XR Left Ribs with PA Chest Exam date and time: 07/26/2021 12:00 AM Age: 21 years old Clinical indication: Other: Fall/pain; Additional info: Ground level fall with left rib pain TECHNIQUE: Imaging protocol: XR Left ribs with PA chest. Views: 3 views COMPARISON: CR Chest 2V 06/25/2020 4:01 PM FINDINGS: Lungs: Unremarkable. No consolidation. Pleural spaces: Unremarkable. No pleural effusion. No pneumothorax. Heart/Mediastinum: Unremarkable. No cardiomegaly. Bones/joints: Unremarkable. No rib fracture. IMPRESSION: No acute findings. Thank you for allowing us to participate in the care of your patient. Dictated and Authenticated by: Jose Luis Santiago MD 07/26/2021 12:53 AM Central Time ([place] & [place]) Departure - Departure Time of Disposition: 00:56 Disposition: Home, Self-Care 01 Condition: Fair Clinical Impression: Contusion of rib on left side Qualifiers: Encounter type: initial encounter Qualified Code(s): S20.212A - Contusion of left front wall of thorax, initial encounter - Discharge Information *PRESCRIPTION DRUG MONITORING PROGRAM REVIEWED*: Not Applicable *COPY OF PRESCRIPTION DRUG MONITORING REPORT IN PATIENT DAVID: Not Applicable Instructions: Rib Contusion Forms: ED Department Discharge Care Plan Goals: The patient was advised of the examination and x-ray results during the visit. The patient was encouraged to take Tylenol or ibuprofen as directed for temporary symptom relief. If the patient has any additional symptoms or concerns, the patient should either return to the emergency department or visit his primary care facility. Sepsis Event Note (ED) - Focused Exam Vital Signs: Vital Signs Temp Pulse Resp BP Pulse Ox 07/26/21 00:30 82 122/65 96 07/26/21 00:05 86 20 127/73 96 07/25/21 23:37 98.8 F 84 22 H 135/78 99
--- NOTE | 2021-07-26 00:53 | CR ---
PROCEDURE INFORMATION: Exam: XR Left Ribs with PA Chest Exam date and time: 07/26/2021 12:00 AM Age: 21 years old Clinical indication: Other: Fall/pain; Additional info: Ground level fall with left rib pain TECHNIQUE: Imaging protocol: XR Left ribs with PA chest. Views: 3 views COMPARISON: CR Chest 2V 06/25/2020 4:01 PM FINDINGS: Lungs: Unremarkable. No consolidation. Pleural spaces: Unremarkable. No pleural effusion. No pneumothorax. Heart/Mediastinum: Unremarkable. No cardiomegaly. Bones/joints: Unremarkable. No rib fracture. IMPRESSION: No acute findings.
== END 2021-07-26 01:03 | disposition home or self-care (01) ==
LOC: DL.ED 23:20
DX: S20.212A Contusion of left front wall of thorax, initial encounter (principal); E78.00 Pure hypercholesterolemia, unspecified; Z88.0 Allergy status to penicillin; Z79.899 Other long term (current) drug therapy; W00.0XXA Fall on same level due to ice and snow, initial encounter
CPT/HCPCS: 71101-LT; 99283-25

== ENCOUNTER 2022-01-17 02:15 | Emergency (ER) | payer MEDICAID | END 2022-01-17 02:48 | disposition left against medical advice (07) | LOC: DL.ED 02:15 | DX: R41.0 Disorientation, unspecified (principal); Z53.21 Procedure and treatment not carried out due to patient leaving prior to being seen by health care provider ==

== ENCOUNTER 2022-04-06 12:35 | Emergency (ER) | payer BC, MEDICAID | END 2022-04-06 14:20 | disposition home or self-care (01) | LOC: DL.ED 12:35 | DX: S02.2XXA Fracture of nasal bones, initial encounter for closed fracture (principal); E78.00 Pure hypercholesterolemia, unspecified; Z88.0 Allergy status to penicillin; Z79.899 Other long term (current) drug therapy; W50.0XXA Accidental hit or strike by another person, initial encounter | CPT/HCPCS: 70160; 99283 ==

== ENCOUNTER 2022-08-29 02:23 | Emergency (ER) | payer MEDICAID | END 2022-08-29 03:27 | disposition left against medical advice (07) | LOC: DL.ED 02:23 | DX: Z53.21 Procedure and treatment not carried out due to patient leaving prior to being seen by health care provider (principal) ==

== ENCOUNTER 2022-10-29 20:52 | Emergency (ER) | payer MEDICAID | END 2022-10-29 22:03 | disposition left against medical advice (07) | LOC: DL.ED 20:52 | DX: Z53.21 Procedure and treatment not carried out due to patient leaving prior to being seen by health care provider (principal) | CPT/HCPCS: 73110-LT ==

== ENCOUNTER 2022-12-10 18:46 | Emergency (ER) | payer MEDICAID ==
[2022-12-10] MEDS ORDERED: Sodium Chloride 0.9% 1,000 ML IV ONE (19:09)
[2022-12-10] MEDS ORDERED: Pantoprazole 40 MG Vial IVPUSH ONE (19:09)
[2022-12-10] MEDS ORDERED: Ondansetron 4 MG/2 ML SDV IVPUSH ONE (19:09)
[2022-12-10 19:26] LABS: BASOPHILS PERCENT AUTO 0.2 % (0.0-1.0); EOSINOPHILS PERCENT AUTO 0.8 % (1.0-3.0); HEMATOCRIT 47.3 % (40.0-54.0); HEMOGLOBIN 16.5 g/dL (14.0-18.0); LYMPHOCYTES PERCENT AUTO 16.8 % (20.5-50.1); MEAN CORPUSCULAR HEMOGLOBIN 29.4 pg (27.0-34.0); MEAN CORPUSCULAR HGB CONC 34.9 g/dL (33.0-35.0); MEAN CORPUSCULAR VOLUME 84.3 fL (80-100); MONOCYTES PERCENT AUTO 6.2 % (2-8); PLATELET COUNT,PLT 223 10^3/uL (150-450); RED BLOOD CELL COUNT 5.61 10^6/uL (4.6-6.2); WHITE BLOOD CELL COUNT,WBC 11.4 10^3/uL (5.0-10.0)
[2022-12-10] MEDS ORDERED: Sodium Chloride 0.9% 10 ML Syringe FLUSH SCH (19:30)
[2022-12-10 19:44] LABS: A/G RATIO 1.2; ALBUMIN 4.5 g/dL (3.4-5.0); ANION GAP 17.8 mEq/L (7-13); BILIRUBIN TOTAL 0.6 mg/dL (0.2-1.0); CALCIUM 9.3 mg/dL (8.5-10.1); CREATININE 1.23 mg/dL (0.70-1.30); EST CRCL DRUG DOSING (CG) 100.33 mL/min; MAGNESIUM 1.9 mg/dL (1.8-2.4); POTASSIUM,K 3.8 mmol/L (3.5-5.1); PROTEIN TOTAL,TP 8.1 g/dL (6.4-8.2)
[2022-12-10 20:02] LABS: APPEARANCE,URINE CLEAR (CLEAR); BILIRUBIN,URINE NEGATIVE (NEGATIVE); COLOR,URINE YELLOW (YELLOW); GLUCOSE,URINE NEGATIVE (NEGATIVE); KETONES,URINE NEGATIVE (NEGATIVE); LEUKOCYTE ESTERASE,URINE NEGATIVE (NEGATIVE); NITRITE,URINE NEGATIVE (NEGATIVE); OCCULT BLOOD,URINE NEGATIVE (NEGATIVE); PROTEIN,URINE 100 (NEGATIVE); UROBILINOGEN,URINE 0.2 mg/dL (0.2-1.0)
[2022-12-10 20:12] LABS: LACTIC ACID 1.7 mmol/L (0.4-2.0)
[2022-12-10] MEDS ORDERED: Take Home: Ondansetron 4 MG Tab.DIS, 5 Tab Pack PO ONE (20:13)
[2022-12-10 20:21] LABS: AMORPHOUS SEDIMENT,URINE FEW /HPF (NOT SEEN); BACTERIA,URINE FEW /HPF (0-FEW/HPF); EPITHELIAL CELLS,URINE FEW /HPF (NOT SEEN); MUCUS,URINE FEW /LPF (NOT SEEN); RBC,URINE 0-5 /HPF (0-5); WBC,URINE 0-5 /HPF (0-5/HPF)
== END 2022-12-10 20:31 | disposition home or self-care (01) ==
LOC: DL.ED 18:46
DX: R10.13 Epigastric pain (principal); R11.10 Vomiting, unspecified; R07.89 Other chest pain; Z88.0 Allergy status to penicillin; Z72.0 Tobacco use; Z86.16 Personal history of COVID-19
CPT/HCPCS: 36415; 71045; 80053; 81001; 82150; 83605; 83690; 83735; 84484; 85025; 93005; 93010; 96361; 96374; 96375; 99283; 99284-25; C9113; J2405; J3490; J7030; Q0162

== ENCOUNTER 2023-02-24 18:37 | Emergency (ER) | payer MEDICAID ==
[2023-02-24] MEDS ORDERED: Metoclopramide 10 MG/2 ML SDV IM ONE (19:54)
[2023-02-24] MEDS ORDERED: Ketorolac 30 MG/ML SDV IM ONE (19:55)
== END 2023-02-24 20:35 | disposition home or self-care (01) ==
LOC: DL.ED 18:37
DX: G43.519 Persistent migraine aura without cerebral infarction, intractable, without status migrainosus (principal); Z86.16 Personal history of COVID-19
CPT/HCPCS: 96372; 99283; J1885; J2765

== ENCOUNTER 2023-05-19 16:24 | Emergency (ER) | payer BC, MEDICAID ==
[2023-05-19 17:22] LABS: CORONAVIRUS COVID-19 NAA NEGATIVE (NEGATIVE); INFLUENZA A NAA NEGATIVE (NEGATIVE); INFLUENZA B NAA NEGATIVE (NEGATIVE); RESPIRATORY SYNCYTIAL VIR NAA NEGATIVE (NEGATIVE)
== END 2023-05-19 18:08 | disposition home or self-care (01) ==
LOC: DL.ED 16:24
DX: B34.9 Viral infection, unspecified (principal); Z88.0 Allergy status to penicillin; Z79.899 Other long term (current) drug therapy; Z86.16 Personal history of COVID-19; Z20.822 Contact with and (suspected) exposure to COVID-19
CPT/HCPCS: 0241U; 99283

== ENCOUNTER 2023-05-21 17:30 | Emergency (ER) | payer MEDICAID | END 2023-05-21 18:50 | disposition home or self-care (01) | LOC: DL.ED 17:30 | DX: R21 Rash and other nonspecific skin eruption (principal); Z86.16 Personal history of COVID-19; Z79.899 Other long term (current) drug therapy; Z88.1 Allergy status to other antibiotic agents | CPT/HCPCS: 99282 ==

== ENCOUNTER 2023-10-30 22:59 | Emergency (ER) | payer MEDICAID ==
[2023-10-30] MEDS: Sodium Chloride 0.9% 10 ML Syringe FLUSH PRN (23:41)
[2023-10-30] MEDS: Aspirin 81 MG Tab.Chew PO ONE (23:41)
[2023-10-30 23:54] LABS: BASOPHILS PERCENT AUTO 0.4 % (0.0-1.0); EOSINOPHILS PERCENT AUTO 1.5 % (1.0-3.0); HEMATOCRIT 41.6 % (40.0-54.0); HEMOGLOBIN 14.2 g/dL (14.0-18.0); MEAN CORPUSCULAR HGB CONC 34.1 g/dL (33.0-35.0); MEAN CORPUSCULAR VOLUME 87.8 fL (80-100); MONOCYTES PERCENT AUTO 7.4 % (2-8); NEUTROPHILS PERCENT AUTO 50.7 % (42.2-75.2); PLATELET COUNT,PLT 218 10^3/uL (150-450); RED BLOOD CELL COUNT 4.74 10^6/uL (4.6-6.2); WHITE BLOOD CELL COUNT,WBC 8.1 10^3/uL (5.0-10.0)
[2023-10-31 00:22] LABS: A/G RATIO 1.3; ALANINE AMINOTRANSFERASE,ALT 37 U/L (16-63); ALBUMIN 3.9 g/dL (3.4-5.0); ALKALINE PHOSPHATASE 80 U/L (46-116); BILIRUBIN TOTAL 0.3 mg/dL (0.2-1.0); BLOOD UREA NITROGEN,BUN 20 mg/dL (7-18); BUN/CREATININE RATIO 18.2 (No establ ref range); CALCIUM 8.6 mg/dL (8.5-10.1); CARBON DIOXIDE,CO2 25 mmol/L (21-32); EST CRCL DRUG DOSING (CG) 111.24 mL/min; POTASSIUM,K 3.6 mmol/L (3.5-5.1); SODIUM,NA 140 mmol/L (136-145); TSH ULTRASENSITIVE 3.66 uIU/mL (0.36-3.74)
[2023-10-31 00:36] LABS: ANION GAP 14.6 mEq/L (7-13); CHLORIDE,CL 104 mmol/L (98-107)
[2023-10-31 00:49] LABS: ESTIMATED GFR 97 mL/min (>=60); ETHANOL BLOOD MEDICAL < 3 mg/dL (0)
[2023-10-31 00:50] LABS: GLUCOSE RANDOM 118 mg/dL (70-99)
[2023-10-31 00:56] LABS: ASPARTATE AMNIOTRANSFERASE,AST 14 U/L (15-37)
[2023-10-31 01:27] LABS: AMPHETAMINES,URINE NEGATIVE (NEGATIVE); BARBITURATES,URINE NEGATIVE (NEGATIVE); BENZODIAZEPINE,URINE NEGATIVE (NEGATIVE); MDMA (ECSTASY), URINE NEGATIVE (NEGATIVE); METHADONE,URINE NEGATIVE (NEGATIVE); METHAMPHETAMINES,URINE NEGATIVE (NEGATIVE); OPIATES,URINE NEGATIVE (NEGATIVE); OXYCODONE,URINE NEGATIVE (NEGATIVE); PHENCYCLIDINE,URINE NEGATIVE (NEGATIVE); TCA,URINE NEGATIVE (NEGATIVE)
[2023-10-31 01:35] LABS: APPEARANCE,URINE CLEAR (CLEAR); BILIRUBIN,URINE NEGATIVE (NEGATIVE); COLOR,URINE YELLOW (YELLOW); GLUCOSE,URINE NEGATIVE (NEGATIVE); KETONES,URINE NEGATIVE (NEGATIVE); LEUKOCYTE ESTERASE,URINE NEGATIVE (NEGATIVE); NITRITE,URINE NEGATIVE (NEGATIVE); OCCULT BLOOD,URINE NEGATIVE (NEGATIVE); PROTEIN,URINE NEGATIVE (NEGATIVE); UROBILINOGEN,URINE 0.2 mg/dL (0.2-1.0)
== END 2023-10-31 03:15 | disposition home or self-care (01) ==
LOC: DL.ED 22:59
DX: R55 Syncope and collapse (principal); F41.9 Anxiety disorder, unspecified; R07.89 Other chest pain; Z88.0 Allergy status to penicillin; Z79.899 Other long term (current) drug therapy; Z86.16 Personal history of COVID-19
CPT/HCPCS: 36415; 80053; 80305-QW; 80307; 81003; 84443; 84484; 85025; 93005; 93010; 99284; 99285; A9270-GY; J3490

== ENCOUNTER 2024-04-11 18:43 | Emergency (ER) | payer BC, MEDICAID | END 2024-04-11 23:08 | disposition home or self-care (01) | LOC: DL.ED 18:43 | DX: M79.662 Pain in left lower leg (principal); E78.00 Pure hypercholesterolemia, unspecified; E66.9 Obesity, unspecified; Z68.38 Body mass index [BMI] 38.0-38.9, adult; Z86.16 Personal history of COVID-19; Z79.899 Other long term (current) drug therapy; Z88.0 Allergy status to penicillin | CPT/HCPCS: 73590-LT; 99283 ==

== ENCOUNTER 2024-05-11 20:31 | Emergency (ER) | payer BC | END 2024-05-11 22:01 | disposition home or self-care (01) | LOC: DL.ED 20:31 | DX: M25.531 Pain in right wrist (principal); E78.00 Pure hypercholesterolemia, unspecified; K21.9 Gastro-esophageal reflux disease without esophagitis; E66.9 Obesity, unspecified; Z86.16 Personal history of COVID-19; Z79.899 Other long term (current) drug therapy; Z88.0 Allergy status to penicillin; X50.9XXA Other and unspecified overexertion or strenuous movements or postures, initial encounter | CPT/HCPCS: 73110-RT; 99283 ==

== ENCOUNTER 2024-07-03 21:33 | Emergency (ER) | payer BC ==
[2024-07-03] MEDS ORDERED: Sodium Chloride 0.9% 10 ML Syringe FLUSH PRN (21:50)
[2024-07-03] MEDS: Sodium Chloride 0.9% 1,000 ML IV ONE (22:08)
[2024-07-03] MEDS: Ketorolac 30 MG/ML SDV IVPUSH ONE (22:08)
[2024-07-03] MEDS: diphenhydrAMINE 50 MG/ML SDV IVPUSH ONE (22:09)
[2024-07-03] MEDS: Metoclopramide 10 MG/2 ML SDV IVPUSH ONE (22:09)
== END 2024-07-03 22:53 | disposition home or self-care (01) ==
LOC: DL.ED 21:33
DX: R51.9 Headache, unspecified (principal); E78.00 Pure hypercholesterolemia, unspecified; E66.9 Obesity, unspecified; Z86.16 Personal history of COVID-19; Z88.0 Allergy status to penicillin; Z79.899 Other long term (current) drug therapy
CPT/HCPCS: 96361; 96374; 96375; 99283; J1200; J1885; J2765; J7030

== ENCOUNTER 2024-12-08 16:50 | Emergency (ER) | payer MEDICAID | END 2024-12-08 20:04 | disposition home or self-care (01) | LOC: DL.ED 16:50 | DX: R15.9 Full incontinence of feces (principal); E78.00 Pure hypercholesterolemia, unspecified; K21.9 Gastro-esophageal reflux disease without esophagitis; E66.9 Obesity, unspecified; Z68.39 Body mass index [BMI] 39.0-39.9, adult; Z86.16 Personal history of COVID-19; Z88.0 Allergy status to penicillin | CPT/HCPCS: 99283 ==

== ENCOUNTER 2024-12-24 16:30 | Emergency (ER) | payer MEDICAID ==
[2024-12-24] MEDS ORDERED: Sodium Chloride 0.9% 10 ML Syringe FLUSH PRN (16:51)
[2024-12-24] MEDS: Ondansetron 4 MG/2 ML SDV IVPUSH ONE (17:02)
[2024-12-24] MEDS: Lactated Ringers 1,000 ML IV SCH (17:04)
[2024-12-24 17:07] LABS: BASOPHILS PERCENT AUTO 0.1 % (0.0-1.0); EOSINOPHILS PERCENT AUTO 0.6 % (1.0-3.0); HEMATOCRIT 49.3 % (40.0-54.0); HEMOGLOBIN 17.9 g/dL (14.0-18.0); MEAN CORPUSCULAR HEMOGLOBIN 31.7 pg (27.0-34.0); MEAN CORPUSCULAR HGB CONC 36.3 g/dL (33.0-35.0); MEAN CORPUSCULAR VOLUME 87.3 fL (80-100); MONOCYTES PERCENT AUTO 5.2 % (2-8); NEUTROPHILS PERCENT AUTO 72.1 % (42.2-75.2); PLATELET COUNT,PLT 238 10^3/uL (150-450); RED BLOOD CELL COUNT 5.65 10^6/uL (4.6-6.2); WHITE BLOOD CELL COUNT,WBC 10.5 10^3/uL (5.0-10.0)
[2024-12-24 17:26] LABS: A/G RATIO 1.2; ALANINE AMINOTRANSFERASE,ALT 56 U/L (16-63); ALBUMIN 4.7 g/dL (3.4-5.0); ALKALINE PHOSPHATASE 79 U/L (46-116); ASPARTATE AMNIOTRANSFERASE,AST 30 U/L (15-37); BILIRUBIN TOTAL 0.6 mg/dL (0.2-1.0); BLOOD UREA NITROGEN,BUN 18 mg/dL (7-18); BUN/CREATININE RATIO 15.4 (No establ ref range); CALCIUM 9.9 mg/dL (8.5-10.1); CARBON DIOXIDE,CO2 25 mmol/L (21-32); CHLORIDE,CL 101 mmol/L (98-107); CREATININE 1.17 mg/dL (0.70-1.30); GLUCOSE RANDOM 94 mg/dL (70-99); PROTEIN TOTAL,TP 8.6 g/dL (6.4-8.2); SODIUM,NA 136 mmol/L (136-145)
[2024-12-24 17:29] LABS: ESTIMATED GFR 89 mL/min (>=60)
[2024-12-24] MEDS: Take Home: Ondansetron 4 MG Tab.DIS, 5 Tab Pack PO ONE (17:52)
== END 2024-12-24 17:58 | disposition home or self-care (01) ==
LOC: DL.ED 16:30
DX: R11.10 Vomiting, unspecified (principal); E66.9 Obesity, unspecified; E78.00 Pure hypercholesterolemia, unspecified; Z88.1 Allergy status to other antibiotic agents; Z79.899 Other long term (current) drug therapy; Z86.16 Personal history of COVID-19
CPT/HCPCS: 36415; 80053; 83735; 85025; 96361; 96374; 99282; 99284; J2405; J7120; Q0162

== ENCOUNTER 2025-01-31 00:59 | Emergency (ER) | payer MEDICAID ==
[2025-01-31 01:39] LABS: BASOPHILS PERCENT AUTO 0.6 % (0.0-1.0); EOSINOPHILS PERCENT AUTO 1.1 % (1.0-3.0); HEMATOCRIT 46.9 % (40.0-54.0); HEMOGLOBIN 15.9 g/dL (14.0-18.0); LYMPHOCYTES PERCENT AUTO 44.6 % (20.5-50.1); MEAN CORPUSCULAR HEMOGLOBIN 29.9 pg (27.0-34.0); MEAN CORPUSCULAR HGB CONC 33.9 g/dL (33.0-35.0); MEAN CORPUSCULAR VOLUME 88.2 fL (80-100); MONOCYTES PERCENT AUTO 4.9 % (2-8); NEUTROPHILS PERCENT AUTO 48.8 % (42.2-75.2); PLATELET COUNT,PLT 235 10^3/uL (150-450); RED BLOOD CELL COUNT 5.32 10^6/uL (4.6-6.2); WHITE BLOOD CELL COUNT,WBC 9.6 10^3/uL (5.0-10.0)
[2025-01-31] MEDS: Cephalexin 500 MG Cap PO ONE (01:41)
[2025-01-31 02:00] LABS: A/G RATIO 1.1; ALBUMIN 4.1 g/dL (3.4-5.0); ANION GAP 15.8 mEq/L (7-13); BILIRUBIN TOTAL 0.3 mg/dL (0.2-1.0); BUN/CREATININE RATIO 16.9 (No establ ref range); CALCIUM 9.5 mg/dL (8.5-10.1); CREATININE 1.18 mg/dL (0.70-1.30); EST CRCL DRUG DOSING (CG) 102.81 mL/min; POTASSIUM,K 3.8 mmol/L (3.5-5.1)
[2025-01-31 02:03] LABS: LACTIC ACID 1.1 mmol/L (0.4-2.0)
== END 2025-01-31 01:50 | disposition home or self-care (01) ==
LOC: DL.ED 00:59
DX: L76.82 Other postprocedural complications of skin and subcutaneous tissue (principal); L03.312 Cellulitis of back [any part except buttock and flank]; E78.00 Pure hypercholesterolemia, unspecified; K21.9 Gastro-esophageal reflux disease without esophagitis; Z88.0 Allergy status to penicillin; Z79.899 Other long term (current) drug therapy; Z86.16 Personal history of COVID-19
CPT/HCPCS: 36415; 80053; 83605; 85025; 99283; A9270-GY

== ENCOUNTER 2025-02-06 13:55 | Emergency (ER) | payer MEDICAID | END 2025-02-06 16:14 | disposition home or self-care (01) | LOC: DL.ED 13:55 | DX: R20.2 Paresthesia of skin (principal); E78.00 Pure hypercholesterolemia, unspecified; F17.200 Nicotine dependence, unspecified, uncomplicated; Z86.16 Personal history of COVID-19; Z88.0 Allergy status to penicillin; Z79.899 Other long term (current) drug therapy | CPT/HCPCS: 72131; 99283; 99284 ==

== ENCOUNTER 2025-05-02 00:37 | Emergency (ER) | payer MEDICAID | END 2025-05-02 02:07 | disposition home or self-care (01) | LOC: DL.ED 00:37 | DX: G43.909 Migraine, unspecified, not intractable, without status migrainosus (principal); Z88.0 Allergy status to penicillin; Z79.899 Other long term (current) drug therapy; Z86.16 Personal history of COVID-19 | CPT/HCPCS: 64400; 99283-25 ==